=== PATIENT | male | born 1995 | race Caucasian/White ===

== ENCOUNTER 2019-03-20 00:38 | Observation (INO) | payer SELFPAY ==
[2019-03-20] MEDS ORDERED: Sodium Chloride 0.9% 2.5 ML Syringe FLUSH PRN ×2 (01:04→13:31)
[2019-03-20] MEDS ORDERED: Sodium Chloride 0.9% 10 ML Syringe FLUSH PRN ×2 (01:04→13:31)
[2019-03-20] MEDS ORDERED: Ketorolac 30 MG/ML SDV IVPUSH ONE (01:05)
[2019-03-20] MEDS ORDERED: Sodium Chloride 0.9% 1,000 ML IV ONE (01:05)
--- NOTE | 2019-03-20 01:07 | EDM.PDOC ---
ED HPI GENERAL MEDICAL PROBLEM - General Chief Complaint: Upper Extremity Injury/Pain Stated Complaint: PT RT ARM HURTS Time Seen by Provider: 03/20/19 00:55 - History of Present Illness INITIAL COMMENTS - FREE TEXT/NARRATIVE: HISTORY AND PHYSICAL: History of present illness: The patient is a 23-year-old male who says he is up-to-date on his tetanus shot and presents with history of IV drug use and using drugs at his right antecubital fossa about one week ago and noticing some pain and redness to the area which seemed to be getting better and then he closed a door onto the area just recently and the pain seemed to worsen as did the redness. He doesn't complain of any specific elbow pain and says that the pain is mostly in the soft tissue and he is concerned about trauma and infection. He has had no systemic complaints such as fever chills chest pain or shortness of breath no abdominal pain or vomiting and is eating and drinking normally. He doesn't recall any foreign body being retained in his arm. He says that there is pain with movement at the elbow especially with flexion as there is somewhat fullness in the flexure area and with certain movements of his hand his wrist he is having discomfort. He has no numbness or weakness in his hand and sensation is intact. The patient is right-hand dominant Review of systems: As per history of present illness and below otherwise all systems reviewed and negative. Past medical history: As per history of present illness and as reviewed below otherwise noncontributory. Surgical history: As per history of present illness and as reviewed below otherwise noncontributory. Social history: No reported history of drug or alcohol abuse. Family history: As per history of present illness and as reviewed below otherwise noncontributory. Physical exam: General: Well-developed well-nourished man who is vital signs are noted by me and he is talkative and interactive. HEENT: Atraumatic, normocephalic, pupils reactive, negative for conjunctival pallor or scleral icterus, mucous membranes moist, throat clear, neck supple, nontender, trachea midline. Lungs: Clear to auscultation, breath sounds equal bilaterally, chest nontender. Heart: S1S2, regular rhythm and tachycardic rate on my evaluation but no overt murmurs, negative for clicks, rubs, or JVD. Abdomen: Soft, nondistended, nontender. Negative for masses or hepatosplenomegaly. Negative for costovertebral tenderness. Pelvis: Stable nontender. Genitourinary: Deferred. Rectal: Deferred. Extremities: Atraumatic and full range of motion of all extremities with the exception of the right upper extremity. At the antecubital fossa area there is a large ill-defined pinkish erythema noted from the mid forearm extending to the distal one third of the soft tissue humerus which is not circumferential and is localized in the antecubital fossa soft tissue. There is induration and fullness within the antecubital fossa and discrete tenderness here but no drainage. There is no bony tenderness defects or deformities of the radius or ulna nor of the olecranon and the supracondylar areas. There is no axillary lymphadenopathy on the right. Distally pulses are intact and capillary refill is normal and the patient can flex and extend at the hand and the wrist. He does have some discomfort with supination and pronation. The legs are, negative for cords or calf pain. Neurovascular unremarkable. Neuro: Awake, alert, oriented. Cranial nerves II through XII unremarkable. Cerebellum unremarkable. Motor and sensory unremarkable throughout. Exam nonfocal. Diagnostics: X-ray right elbow/soft tissue, CBC CMP lactic acid blood cultures INR UDS CT scan of the right upper extremity Therapeutics: IV fluids Toradol vancomycin 0200: This was discussed with Dr. Tate our orthopedic surgeon and he agrees that a CT scan of this area would be very helpful to decide whether or not he needs to do surgery and drain any abscess or fluid collection. He would like to be on consult and requested the patient be admitted to the hospitalist and he will consult and review the CT scan in the morning. I will discuss this with the hospitalist once I get the CT scan findings. 0342: Testing results were discussed with the patient and the need for admission and surgical involvement with Dr. Tate was discussed. The patient is agreeable. This case was also discussed with our hospitalist Dr. Zhao and she accepts him for admission. Impression: Abscess and cellulitis of right antecubital fossa status post drug use Definitive disposition and diagnosis as appropriate pending reevaluation and review of above. R arm Pain Score (Numeric/FACES): 8 - Related Data Allergies Allergy/AdvReac Type Severity Reaction Status Date / Time No Known Allergies Allergy Verified 03/20/19 00:46 Home Meds: Home Meds . [No Known Home Meds] 03/20/19 [History] Past Medical History - Past Health History Medical/Surgical History: Denies Medical/Surgical History Psychiatric History: Reports: Addiction - Past Surgical History Other HEENT Surgeries/Procedures: unable to verify Other Cardiovascular Surgeries/Procedures: unable to verify Other Respiratory Surgeries/Procedures: unable to verify Other GI Surgeries/Procedures: unable to verify Other Male Surgeries/Procedures: unable to verify Other Endocrine Surgeries/Procedures: unable to verify Other Neurological Surgeries/Procedures: unable to verify Other Musculoskeletal Surgeries/Procedures:: unable to verify Social & Family History - Family History Other Dermatologic Family History: unable to verify - Tobacco Use Smoking Status *Q: Current Every Day Smoker Years of Tobacco use: 8 Packs/Tins Daily: 1 - Recreational Drug Use Recreational Drug Use: Yes Recreational Drug Type: Reports: Heroin Review of Systems - Review of Systems Review Of Systems: Comprehensive ROS is negative, except as noted in HPI. ED EXAM, GENERAL - Physical Exam Exam: See Below (See dictation) Course - Vital Signs Last Recorded V/S: Last Vital Signs Temp 37.2 C 03/20/19 02:58 Pulse 100 03/20/19 02:58 Resp 18 03/20/19 02:58 BP 116/55 L 03/20/19 02:58 Pulse Ox 96 03/20/19 02:58 - Orders/Labs/Meds Orders: Active Orders 24 hr Category Date Time Status Notify Provider Consults [RC] ASDIRECTED Care 03/20/19 02:07 Active Consult to Physician [CONS] Stat Cons 03/20/19 02:06 Active CULTURE BLOOD [BC] Stat Lab 03/20/19 01:20 Received CULTURE BLOOD [BC] Stat Lab 03/20/19 01:30 Received Sodium Chloride 0.9% [Saline Flush] Med 03/20/19 01:04 Active 10 ml FLUSH ASDIRECTED PRN Sodium Chloride 0.9% [Saline Flush] Med 03/20/19 01:04 Active 2.5 ml FLUSH ASDIRECTED PRN Blood Culture x2 Reflex Set [OM.PC] Stat Oth 03/20/19 01:04 Ordered Saline Lock Insert [OM.PC] Stat Oth 03/20/19 01:04 Ordered Saline Lock Insert [OM.PC] Stat Oth 03/20/19 01:05 Ordered Medication Orders Sodium Chloride (Saline Flush) 10 ml FLUSH ASDIRECTED PRN PRN Reason: Keep Vein Open Sodium Chloride (Saline Flush) 2.5 ml FLUSH ASDIRECTED PRN PRN Reason: Keep Vein Open Labs: Laboratory Tests 03/20/19 03/20/19 03/20/19 Range/Units 01:10 01:30 01:30 WBC 17.78 H (4.0-11.0) K/uL RBC 4.78 (4.50-5.90) M/uL Hgb 15.0 (13.0-17.0) g/dL Hct 42.6 (38.0-50.0) % MCV 89.1 (80.0-98.0) fL MCH 31.4 (27.0-32.0) pg MCHC 35.2 (31.0-37.0) g/dL RDW Std Deviation 39.4 (28.0-62.0) fl RDW Coeff of Patricia 12 (11.0-15.0) % Plt Count 306 (150-400) K/uL MPV 9.20 (7.40-12.00) fL Neut % (Auto) 75.2 (48.0-80.0) % Lymph % (Auto) 13.0 L (16.0-40.0) % Pike % (Auto) 9.8 (0.0-15.0) % Eos % (Auto) 1.7 (0.0-7.0) % Baso % (Auto) 0.3 (0.0-1.5) % Neut # (Auto) 13.4 H (1.4-5.7) K/uL Lymph # (Auto) 2.3 (0.6-2.4) K/uL Pike # (Auto) 1.7 H (0.0-0.8) K/uL Eos # (Auto) 0.3 (0.0-0.7) K/uL Baso # (Auto) 0.1 (0.0-0.1) K/uL INR 0.98 Lactate (0.20-2.00) mmol/L Sodium (136-148) mmol/L Potassium (3.5-5.1) mmol/L Chloride (98-107) mmol/L Carbon Dioxide (21.0-32.0) mmol/L BUN (7.0-18.0) mg/dL Creatinine (0.8-1.3) mg/dL Est Cr Clr Drug Dosing Estimated GFR (MDRD) ml/min Glucose (74-106) mg/dL Calcium (8.5-10.1) mg/dL Total Bilirubin (0.2-1.0) mg/dL AST (15-37) IU/L ALT (14-63) IU/L Alkaline Phosphatase (46-116) U/L Total Protein (6.4-8.2) g/dL Albumin (3.4-5.0) g/dL Globulin (2.6-4.0) g/dL Albumin/Globulin Ratio (0.9-1.6) Urine Opiates Screen POSITIVE (NEGATIVE) Ur Oxycodone Screen NEGATIVE (NEGATIVE) Urine Methadone Screen NEGATIVE (NEGATIVE) Ur Barbiturates Screen NEGATIVE (NEGATIVE) Ur Phencyclidine Scrn NEGATIVE (NEGATIVE) Ur Amphetamine Screen POSITIVE (NEGATIVE) U Methamphetamines Scrn NEGATIVE (NEGATIVE) U Benzodiazepines Scrn NEGATIVE (NEGATIVE) U Cocaine Metab Screen NEGATIVE (NEGATIVE) U Marijuana (THC) Screen POSITIVE (NEGATIVE) 03/20/19 03/20/19 Range/Units 01:30 01:30 WBC (4.0-11.0) K/uL RBC (4.50-5.90) M/uL Hgb (13.0-17.0) g/dL Hct (38.0-50.0) % MCV (80.0-98.0) fL MCH (27.0-32.0) pg MCHC (31.0-37.0) g/dL RDW Std Deviation (28.0-62.0) fl RDW Coeff of Patricia (11.0-15.0) % Plt Count (150-400) K/uL MPV (7.40-12.00) fL Neut % (Auto) (48.0-80.0) % Lymph % (Auto) (16.0-40.0) % Pike % (Auto) (0.0-15.0) % Eos % (Auto) (0.0-7.0) % Baso % (Auto) (0.0-1.5) % Neut # (Auto) (1.4-5.7) K/uL Lymph # (Auto) (0.6-2.4) K/uL Pike # (Auto) (0.0-0.8) K/uL Eos # (Auto) (0.0-0.7) K/uL Baso # (Auto) (0.0-0.1) K/uL INR Lactate 0.9 (0.20-2.00) mmol/L Sodium 137 (136-148) mmol/L Potassium 4.0 (3.5-5.1) mmol/L Chloride 100 (98-107) mmol/L Carbon Dioxide 30.9 (21.0-32.0) mmol/L BUN 10 (7.0-18.0) mg/dL Creatinine 1.0 (0.8-1.3) mg/dL Est Cr Clr Drug Dosing TNP Estimated GFR (MDRD) > 60.0 ml/min Glucose 91 (74-106) mg/dL Calcium 8.1 L (8.5-10.1) mg/dL Total Bilirubin 0.6 (0.2-1.0) mg/dL AST 18 (15-37) IU/L ALT 26 (14-63) IU/L Alkaline Phosphatase 82 (46-116) U/L Total Protein 7.1 (6.4-8.2) g/dL Albumin 3.6 (3.4-5.0) g/dL Globulin 3.5 (2.6-4.0) g/dL Albumin/Globulin Ratio 1.0 (0.9-1.6) Urine Opiates Screen (NEGATIVE) Ur Oxycodone Screen (NEGATIVE) Urine Methadone Screen (NEGATIVE) Ur Barbiturates Screen (NEGATIVE) Ur Phencyclidine Scrn (NEGATIVE) Ur Amphetamine Screen (NEGATIVE) U Methamphetamines Scrn (NEGATIVE) U Benzodiazepines Scrn (NEGATIVE) U Cocaine Metab Screen (NEGATIVE) U Marijuana (THC) Screen (NEGATIVE) Meds: Medications Generic Name Dose Route Start Last Admin Trade Name Freq PRN Reason Stop Dose Admin Sodium Chloride 10 ml 03/20/19 01:04 Saline Flush FLUSH ASDIRECTED PRN Keep Vein Open Sodium Chloride 2.5 ml 03/20/19 01:04 Saline Flush FLUSH ASDIRECTED PRN Keep Vein Open Discontinued Medications Generic Name Dose Route Start Last Admin Trade Name Freq PRN Reason Stop Dose Admin Sodium Chloride 1,000 mls @ 999 mls/hr 03/20/19 01:05 03/20/19 01:35 Normal Saline IV 03/20/19 02:05 999 mls/hr STAT ONE Administration Vancomycin HCl 1 gm/ Sodium 250 mls @ 166 mls/hr 03/20/19 01:05 03/20/19 01: 35 Chloride IV 03/20/19 02:35 166 mls/hr ONETIME ONE Administration Iopamidol 100 ml 03/20/19 02:21 03/20/19 02:33 Isovue-370 (76%) IVPUSH 03/20/19 02:22 100 ml ONETIME ONE Administration Ketorolac Tromethamine 30 mg 03/20/19 01:05 03/20/19 01:35 Toradol IVPUSH 03/20/19 01:06 30 mg ONETIME ONE Administration Departure - Departure Time of Disposition: 03:45 Disposition: Refer to Observation Condition: Good Clinical Impression: Arm abscess - Discharge Information Referrals: PCP,None [Primary Care Provider] - Forms: ED Department Discharge Sepsis Event Note - Evaluation Sepsis Screening Result: No Definite Risk - Focused Exam Vital Signs: Vital Signs Temp Pulse Resp BP Pulse Ox 03/20/19 02:58 37.2 C 100 18 116/55 L 96 03/20/19 00:41 37.1 C 124 H 18 132/72 100 Date Exam was Performed: 03/20/19 Time Exam was Performed: 03:44 - My Orders Last 24 Hours: My Active Orders 03/20/19 01:04 Sodium Chloride 0.9% [Saline Flush] 10 ml FLUSH ASDIRECTED PRN Sodium Chloride 0.9% [Saline Flush] 2.5 ml FLUSH ASDIRECTED PRN Blood Culture x2 Reflex Set [OM.PC] Stat Saline Lock Insert [OM.PC] Stat 03/20/19 01:05 Saline Lock Insert [OM.PC] Stat 03/20/19 01:20 CULTURE BLOOD [BC] Stat 03/20/19 01:30 CULTURE BLOOD [BC] Stat 03/20/19 02:06 Consult to Physician [CONS] Stat 03/20/19 02:07 Notify Provider Consults [RC] ASDIRECTED - Assessment/Plan Last 24 Hours: My Active Orders 03/20/19 01:04 Sodium Chloride 0.9% [Saline Flush] 10 ml FLUSH ASDIRECTED PRN Sodium Chloride 0.9% [Saline Flush] 2.5 ml FLUSH ASDIRECTED PRN Blood Culture x2 Reflex Set [OM.PC] Stat Saline Lock Insert [OM.PC] Stat 03/20/19 01:05 Saline Lock Insert [OM.PC] Stat 03/20/19 01:20 CULTURE BLOOD [BC] Stat 03/20/19 01:30 CULTURE BLOOD [BC] Stat 03/20/19 02:06 Consult to Physician [CONS] Stat 03/20/19 02:07 Notify Provider Consults [RC] ASDIRECTED
--- NOTE | 2019-03-20 01:58 | CR ---
Indication: Trauma, rule out foreign body Technique: Three views of the left elbow Comparison: None Findings/Impression: 1. There is no fracture or dislocation. There is no appreciable elbow joint effusion. 2. Subcutaneous edema is noted along the medial elbow. There is no radiopaque foreign body or subcutaneous emphysema. Dictated by Bronson Tello MD @ Mar 20 2019 1:57AM Signed by Dr. Bronson Tello @ Mar 20 2019 1:57AM
[2019-03-20 02:04] LABS: BLOOD UREA NITROGEN,BUN 10 mg/dL (7.0-18.0); CARBON DIOXIDE,CO2 30.9 mmol/L (21.0-32.0); CHLORIDE,CL 100 mmol/L (98-107); GLUCOSE RANDOM 91 mg/dL (74-106); SODIUM,NA 137 mmol/L (136-148)
[2019-03-20] MEDS ORDERED: Iopamidol 755 Mg/ML 100 ML Bottle IVPUSH ONE (02:21)
--- NOTE | 2019-03-20 03:39 | CT ---
Exam: CT angiography of the right upper extremity with IV contrast. Clinical Information: Right upper extremity swelling. Comparison: None. Findings: Lobular peripherally enhancing low density fluid collection in the subcutaneous tissues of the right antecubital fossa measuring approximately 3.0 x 1.9 x 1.9 cm compatible with an abscess. Adjacent moderate skin thickening and subcutaneous edema which extends in the lateral distal arm and anterior proximal mid forearm consistent with cellulitis. The visualized right brachial, radial, ulnar, and intraosseous arteries are widely patent. The visualized right humerus, radius, and ulna are unremarkable. Impression: Abscess in the right antecubital fossa measuring 3.0 x 1.9 x 1.9 cm with adjacent cellulitis. Please note that all CT scans at this facility use dose modulation, iterative reconstruction, and/or weight-based dosing when appropriate to reduce radiation dose to as low as reasonably achievable. Dictated by Yousuf Rhodes MD @ Mar 20 2019 9:05AM (Electronically Signed)
[2019-03-20] MEDS: Sodium Chloride 0.9% 1,000 ML IV SCH ×2 (03:51→14:28)
[2019-03-20] MEDS: traMADol 50 MG Tab PO PRN (07:38)
--- NOTE | 2019-03-20 09:44 | PCM.HP.2 ---
<Reyna Mendes - Last Filed: 03/20/19 12:33> H&P History of Present Illness - General Date of Service: 03/20/19 Admit Problem/Dx: Admission Diagnosis/Problem Admission Diagnosis/Problem Abscess of upper extremity Source of Information: Patient History Limitations: Reports: No Limitations - History of Present Illness Initial Comments - Free Text/Narative: Patient is a 23-year-old male with a significant past medical history of IV drug abuse including heroin/methamphetamine use; presenting today with right upper extremity swelling with redness. Patient does not endorse any recent IV drug abuse however does complain that he had bumped his arm; specifically his elbow into a door causing the redness and swelling. Patient denies any fevers, chills, body aches but does endorse having increasing pain trying to stretch his arm out. Patient otherwise has no other concerns or comments at this time. ER course: CTA of right upper extremity showed multiloculated abscesses with cellulitis of right antecubital fossa. Right elbow x-ray; no acute fracture and/or dislocation however soft tissue swelling noted over the medial aspect of right elbow Bedside: Patient is only complaining of pain when extending her arm or with moving the arm however does not have any other issues at this time. R arm Pain Score (Numeric/FACES): 7 - Related Data Allergies/Adverse Reactions: Allergies Allergy/AdvReac Type Severity Reaction Status Date / Time No Known Allergies Allergy Verified 03/20/19 10:56 Home Medications: Home Meds Acetaminophen [Tylenol Extra Strength] 1,000 mg PO Q6H PRN tablet 03/22/19 [Rx] Cephalexin [Keflex] 500 mg PO TID 10 Days capsule 03/22/19 [Rx] Past Medical History - Past Health History Medical/Surgical History: Denies Medical/Surgical History Psychiatric History: Reports: Addiction - Past Surgical History Other HEENT Surgeries/Procedures: unable to verify Other Cardiovascular Surgeries/Procedures: unable to verify Other Respiratory Surgeries/Procedures: unable to verify Other GI Surgeries/Procedures: unable to verify Other Male Surgeries/Procedures: unable to verify Other Endocrine Surgeries/Procedures: unable to verify Other Neurological Surgeries/Procedures: unable to verify Other Musculoskeletal Surgeries/Procedures:: unable to verify Social & Family History - Family History Other Dermatologic Family History: unable to verify - Tobacco Use Smoking Status *Q: Current Every Day Smoker Years of Tobacco use: 6 Packs/Tins Daily: 1 Second Hand Smoke Exposure: No - Caffeine Use Caffeine Use: Reports: Soda - Recreational Drug Use Recreational Drug Use: Yes Drug Use in Last 12 Months: Yes Recreational Drug Type: Reports: Heroin Recreational Drug Last Use: pt stated 5 days ago H&P Review of Systems - Review of Systems: Review Of Systems: See Below General: Denies: Fever, Chills, Malaise HEENT: Denies: Eye Pain Pulmonary: Denies: Shortness of Breath, Wheezing, Pleuritic Chest Pain Cardiovascular: Denies: Chest Pain, Palpitations Gastrointestinal: Denies: Abdominal Pain, Constipation, Diarrhea Musculoskeletal: Reports: Arm Pain. Denies: Shoulder Pain, Back Pain Skin: Reports: Erythema Neurological: Denies: Headache Exam - Exam Exam: See Below - Vital Signs Vital Signs: Last Vital Signs Temp 98.4 F 03/20/19 07:43 Pulse 84 03/20/19 07:43 Resp 15 03/20/19 07:43 BP 128/67 03/20/19 07:43 Pulse Ox 95 03/20/19 07:43 Weight: 75.024 kg - Exam General: Alert, Oriented HEENT: Conjunctiva Clear, EOMI Neck: Supple, Trachea Midline Lungs: Clear to Auscultation, Normal Respiratory Effort Cardiovascular: Regular Rate, Regular Rhythm GI/Abdominal Exam: Soft, Non-Tender Back Exam: Normal Inspection Extremities: Other (decreased active ROM secondary to pain ; normal Passive ROM ) Skin: Other (right antecubital fossa: erytheam w/ induration extending to just above elbow joint line to proximal 1/3 of forearm. redness has improved and has not gone past line of demarcation ..sensation and negative turner strength intact ) Psychiatric: Alert, Normal Affect, Normal Mood - Patient Data Lab Results Last 24 hrs: Laboratory Results - last 24 hr 03/20/19 03/20/19 03/20/19 Range/Units 01:10 01:30 01:30 WBC 17.78 H (4.0-11.0) K/uL RBC 4.78 (4.50-5.90) M/uL Hgb 15.0 (13.0-17.0) g/dL Hct 42.6 (38.0-50.0) % MCV 89.1 (80.0-98.0) fL MCH 31.4 (27.0-32.0) pg MCHC 35.2 (31.0-37.0) g/dL RDW Std Deviation 39.4 (28.0-62.0) fl RDW Coeff of Patricia 12 (11.0-15.0) % Plt Count 306 (150-400) K/uL MPV 9.20 (7.40-12.00) fL Neut % (Auto) 75.2 (48.0-80.0) % Lymph % (Auto) 13.0 L (16.0-40.0) % Valley % (Auto) 9.8 (0.0-15.0) % Eos % (Auto) 1.7 (0.0-7.0) % Baso % (Auto) 0.3 (0.0-1.5) % Neut # (Auto) 13.4 H (1.4-5.7) K/uL Lymph # (Auto) 2.3 (0.6-2.4) K/uL Valley # (Auto) 1.7 H (0.0-0.8) K/uL Eos # (Auto) 0.3 (0.0-0.7) K/uL Baso # (Auto) 0.1 (0.0-0.1) K/uL INR 0.98 Lactate (0.20-2.00) mmol/L Sodium (136-148) mmol/L Potassium (3.5-5.1) mmol/L Chloride (98-107) mmol/L Carbon Dioxide (21.0-32.0) mmol/L BUN (7.0-18.0) mg/dL Creatinine (0.8-1.3) mg/dL Est Cr Clr Drug Dosing Estimated GFR (MDRD) ml/min Glucose (74-106) mg/dL Calcium (8.5-10.1) mg/dL Total Bilirubin (0.2-1.0) mg/dL AST (15-37) IU/L ALT (14-63) IU/L Alkaline Phosphatase (46-116) U/L Total Protein (6.4-8.2) g/dL Albumin (3.4-5.0) g/dL Globulin (2.6-4.0) g/dL Albumin/Globulin Ratio (0.9-1.6) Urine Opiates Screen POSITIVE (NEGATIVE) Ur Oxycodone Screen NEGATIVE (NEGATIVE) Urine Methadone Screen NEGATIVE (NEGATIVE) Ur Barbiturates Screen NEGATIVE (NEGATIVE) Ur Phencyclidine Scrn NEGATIVE (NEGATIVE) Ur Amphetamine Screen POSITIVE (NEGATIVE) U Methamphetamines Scrn NEGATIVE (NEGATIVE) U Benzodiazepines Scrn NEGATIVE (NEGATIVE) U Cocaine Metab Screen NEGATIVE (NEGATIVE) U Marijuana (THC) Screen POSITIVE (NEGATIVE) 03/20/19 03/20/19 Range/Units 01:30 01:30 WBC (4.0-11.0) K/uL RBC (4.50-5.90) M/uL Hgb (13.0-17.0) g/dL Hct (38.0-50.0) % MCV (80.0-98.0) fL MCH (27.0-32.0) pg MCHC (31.0-37.0) g/dL RDW Std Deviation (28.0-62.0) fl RDW Coeff of Patricia (11.0-15.0) % Plt Count (150-400) K/uL MPV (7.40-12.00) fL Neut % (Auto) (48.0-80.0) % Lymph % (Auto) (16.0-40.0) % Valley % (Auto) (0.0-15.0) % Eos % (Auto) (0.0-7.0) % Baso % (Auto) (0.0-1.5) % Neut # (Auto) (1.4-5.7) K/uL Lymph # (Auto) (0.6-2.4) K/uL Valley # (Auto) (0.0-0.8) K/uL Eos # (Auto) (0.0-0.7) K/uL Baso # (Auto) (0.0-0.1) K/uL INR Lactate 0.9 (0.20-2.00) mmol/L Sodium 137 (136-148) mmol/L Potassium 4.0 (3.5-5.1) mmol/L Chloride 100 (98-107) mmol/L Carbon Dioxide 30.9 (21.0-32.0) mmol/L BUN 10 (7.0-18.0) mg/dL Creatinine 1.0 (0.8-1.3) mg/dL Est Cr Clr Drug Dosing TNP Estimated GFR (MDRD) > 60.0 ml/min Glucose 91 (74-106) mg/dL Calcium 8.1 L (8.5-10.1) mg/dL Total Bilirubin 0.6 (0.2-1.0) mg/dL AST 18 (15-37) IU/L ALT 26 (14-63) IU/L Alkaline Phosphatase 82 (46-116) U/L Total Protein 7.1 (6.4-8.2) g/dL Albumin 3.6 (3.4-5.0) g/dL Globulin 3.5 (2.6-4.0) g/dL Albumin/Globulin Ratio 1.0 (0.9-1.6) Urine Opiates Screen (NEGATIVE) Ur Oxycodone Screen (NEGATIVE) Urine Methadone Screen (NEGATIVE) Ur Barbiturates Screen (NEGATIVE) Ur Phencyclidine Scrn (NEGATIVE) Ur Amphetamine Screen (NEGATIVE) U Methamphetamines Scrn (NEGATIVE) U Benzodiazepines Scrn (NEGATIVE) U Cocaine Metab Screen (NEGATIVE) U Marijuana (THC) Screen (NEGATIVE) Result Diagrams: 03/20/19 01:30 03/20/19 01:30 Sepsis Event Note - Evaluation Sepsis Screening Result: No Definite Risk - Focused Exam Vital Signs: Vital Signs Temp Pulse Resp BP Pulse Ox 03/20/19 07:43 98.4 F 84 15 128/67 95 03/20/19 04:40 97.2 F 85 16 122/58 L 97 03/20/19 04:00 99 F 88 18 106/52 L 96 03/20/19 02:58 99 F 100 18 116/55 L 96 03/20/19 00:41 98.7 F 124 H 18 132/72 100 Date Exam was Performed: 03/20/19 Time Exam was Performed: 12:33 Problem List Initiated/Reviewed/Updated: Yes Orders Last 24hrs: Active Orders 24 hr Category Date Time Status Patient Status [ADT] Stat ADT 03/20/19 03:45 Active Notify Provider Consults [RC] ASDIRECTED Care 03/20/19 02:07 Active Vital Signs [RC] Q4H Care 03/20/19 08:00 Active Consult to Physician [CONS] Stat Cons 03/20/19 02:06 Active NPO [Nothing Per Oral Diet] [DIET] Diet 03/20/19 Breakfast Active CULTURE BLOOD [BC] Stat Lab 03/20/19 01:20 Received CULTURE BLOOD [BC] Stat Lab 03/20/19 01:30 Received VANCOMYCIN TROUGH [CHEM] Timed Lab 03/21/19 08:00 Ordered Pharmacy to Dose - Vancomycin Med 03/20/19 06:30 Pending 1 dose .XX ASDIRECTED Sodium Chloride 0.9% [Normal Saline] 1,000 ml Med 03/20/19 04:00 Active IV ASDIRECTED Sodium Chloride 0.9% [Saline Flush] Med 03/20/19 01:04 Active 10 ml FLUSH ASDIRECTED PRN Sodium Chloride 0.9% [Saline Flush] Med 03/20/19 01:04 Active 2.5 ml FLUSH ASDIRECTED PRN Vancomycin [Vancocin] 1 gm Med 03/20/19 09:00 Active Sodium Chloride 0.9% [Normal Saline (AdvBag)] 250 ml IV Q8H traMADol [Ultram] Med 03/20/19 06:16 Active 25 mg PO Q6H PRN Blood Culture x2 Reflex Set [OM.PC] Stat Oth 03/20/19 01:04 Ordered Saline Lock Insert [OM.PC] Stat Oth 03/20/19 01:04 Ordered Saline Lock Insert [OM.PC] Stat Oth 03/20/19 01:05 Ordered Code Status [Resuscitation Status] Routine Resus Stat 03/20/19 09:38 Ordered Medication Orders Sodium Chloride (Normal Saline) 1,000 mls @ 125 mls/hr IV ASDIRECTED [facility] Last Admin: 03/20/19 03:51 Dose: 125 mls/hr Vancomycin HCl 1 gm/ Sodium (Chloride) 250 mls @ 166 mls/hr IV Q8H [facility]ACHEL Last Admin: 03/20/19 08:57 Dose: 166 mls/hr Sodium Chloride (Saline Flush) 10 ml FLUSH ASDIRECTED PRN PRN Reason: Keep Vein Open Sodium Chloride (Saline Flush) 2.5 ml FLUSH ASDIRECTED PRN PRN Reason: Keep Vein Open Tramadol HCl (Ultram) 25 mg PO Q6H PRN PRN Reason: Pain Last Admin: 03/20/19 07:38 Dose: 25 mg Vancomycin HCl (Pharmacy To Dose - Vancomycin) 1 dose .XX ASDIRECTED [facility] Assessment/Plan Comment:: Assessment 1. Cellulitis with abscess formation of right antecubital fossa secondary to trauma and history of IV drug abuse 2. Leukocytosis secondary to above 3. Hx IV drug abuse Plan: 1. Admit to observation. N.p.o. after midnight/regular diet thereafter. Full code. Activity up ad brii. DVT prophylaxis: SCDs. 2. Cellulitis; continue vancomycin until blood cultures/sensitivities return. Patient has been afebrile since admission. 3. Consultation: Dr. Zafar Tate of orthopedics has been officially consulted : We appreciate his help in this case 4. Patient denies any history of hepatitis and/or HIV; will consider testing secondary to history of IV drug abuse. 5. Continue to monitor patient; will order labs in a.m. Patient understood plan. All questions answered. <Daina Zhao - Last Filed: 03/25/19 14:28> H&P History of Present Illness - General Admit Problem/Dx: Admission Diagnosis/Problem Admission Diagnosis/Problem Abscess of right forearm Admission Diagnosis/Problem Abscess of upper extremity Exam - Vital Signs Vital Signs: Last Vital Signs Temp 36.4 C 03/22/19 07:41 Pulse 82 03/22/19 07:41 Resp 14 03/22/19 07:41 BP 130/71 03/22/19 07:41 Pulse Ox 96 03/22/19 07:41 - Patient Data Result Diagrams: 03/22/19 05:37 03/22/19 05:37 David Results Last 24 hrs: Microbiology 03/20/19 13:08 Wound Culture - Final Arm, Right - Lower Escherichia Coli Skin Wendy 03/20/19 01:20 Aerobic Blood Culture - Final Blood - Venous - Lab Draw NO GROWTH AFTER 5 DAYS Anaerobic Blood Culture - Final NO GROWTH AFTER 5 DAYS 03/20/19 01:30 Aerobic Blood Culture - Final Blood - Venous NO GROWTH AFTER 5 DAYS Anaerobic Blood Culture - Final NO GROWTH AFTER 5 DAYS 03/20/19 13:08 Anaerobic Culture - Preliminary Other - Arm, Right Assessment/Plan Comment:: I performed a history and physical exam of the patient and discussed management with resident. I have reviewed the residents note and agree with documented findings and plan unless otherwise specified in my note.
--- NOTE | 2019-03-20 10:13 | PCM.CONS ---
H&P History of Present Illness - General Date of Service: 03/20/19 Admit Problem/Dx: Admission Diagnosis/Problem Admission Diagnosis/Problem Abscess of upper extremity Source of Information: Patient, Provider History Limitations: Reports: No Limitations - History of Present Illness Initial Comments - Free Text/Narative: Patient is a 23 year old right hand dominant male who presented to the ER last night. He had gradual onset of pain. He is a known IV drug user. He does not report any recent injections in the right upper extremity or antecubital fossa. He does report trauma, striking the elbow on a door. CT scan notes a loculated superficial abscess in the antecubital region. No joint or bone involvement. No hand numbness. He was started on Vancomycin in the ER. He was admitted to the hospitalist service for medical management of possible withdrawal. R arm Pain Score (Numeric/FACES): 7 - Related Data Allergies/Adverse Reactions: Allergies Allergy/AdvReac Type Severity Reaction Status Date / Time No Known Allergies Allergy Verified 03/20/19 00:46 Home Medications: Home Meds . [No Known Home Meds] 03/20/19 [History] Past Medical History - Past Health History Medical/Surgical History: Denies Medical/Surgical History Psychiatric History: Reports: Addiction - Past Surgical History Other HEENT Surgeries/Procedures: unable to verify Other Cardiovascular Surgeries/Procedures: unable to verify Other Respiratory Surgeries/Procedures: unable to verify Other GI Surgeries/Procedures: unable to verify Other Male Surgeries/Procedures: unable to verify Other Endocrine Surgeries/Procedures: unable to verify Other Neurological Surgeries/Procedures: unable to verify Other Musculoskeletal Surgeries/Procedures:: unable to verify Social & Family History - Family History Other Dermatologic Family History: unable to verify - Tobacco Use Smoking Status *Q: Current Every Day Smoker Years of Tobacco use: 6 Packs/Tins Daily: 1 Second Hand Smoke Exposure: No - Caffeine Use Caffeine Use: Reports: Soda - Recreational Drug Use Recreational Drug Use: Yes Drug Use in Last 12 Months: Yes Recreational Drug Type: Reports: Heroin Recreational Drug Last Use: pt stated 5 days ago H&P Review of Systems - Review of Systems: Review Of Systems: See Below General: Reports: Chills HEENT: Reports: No Symptoms Pulmonary: Reports: No Symptoms Cardiovascular: Reports: No Symptoms Gastrointestinal: Reports: No Symptoms Genitourinary: Reports: No Symptoms Musculoskeletal: Reports: Arm Pain Skin: Reports: Erythema Psychiatric: Reports: No Symptoms Neurological: Reports: No Symptoms Hematologic/Lymphatic: Reports: No Symptoms Exam - Exam Exam: See Below - Vital Signs Vital Signs: Last Vital Signs Temp 98.4 F 03/20/19 07:43 Pulse 84 03/20/19 07:43 Resp 15 03/20/19 07:43 BP 128/67 03/20/19 07:43 Pulse Ox 95 03/20/19 07:43 Weight: 165 lb 6.4 oz - Exam General: Alert, Oriented, Cooperative Neck: Supple, Trachea Midline Lungs: Clear to Auscultation Cardiovascular: Regular Rate, Regular Rhythm GI/Abdominal Exam: Normal Bowel Sounds Extremities: Other Peripheral Pulses: 2+: Radial (R) Physical Exam Comments:: Erythema antecubital region, smaller than outlined area Antecubital swelling consistent with abscess Moves fingers Normal sensation to light touch Elbow ROM , palpation, and stability deferred due to known abscess - Patient Data Lab Results Last 24 hrs: Laboratory Results - last 24 hr 03/20/19 03/20/19 03/20/19 Range/Units 01:10 01:30 01:30 WBC 17.78 H (4.0-11.0) K/uL RBC 4.78 (4.50-5.90) M/uL Hgb 15.0 (13.0-17.0) g/dL Hct 42.6 (38.0-50.0) % MCV 89.1 (80.0-98.0) fL MCH 31.4 (27.0-32.0) pg MCHC 35.2 (31.0-37.0) g/dL RDW Std Deviation 39.4 (28.0-62.0) fl RDW Coeff of Patricia 12 (11.0-15.0) % Plt Count 306 (150-400) K/uL MPV 9.20 (7.40-12.00) fL Neut % (Auto) 75.2 (48.0-80.0) % Lymph % (Auto) 13.0 L (16.0-40.0) % Todd % (Auto) 9.8 (0.0-15.0) % Eos % (Auto) 1.7 (0.0-7.0) % Baso % (Auto) 0.3 (0.0-1.5) % Neut # (Auto) 13.4 H (1.4-5.7) K/uL Lymph # (Auto) 2.3 (0.6-2.4) K/uL Todd # (Auto) 1.7 H (0.0-0.8) K/uL Eos # (Auto) 0.3 (0.0-0.7) K/uL Baso # (Auto) 0.1 (0.0-0.1) K/uL INR 0.98 Lactate (0.20-2.00) mmol/L Sodium (136-148) mmol/L Potassium (3.5-5.1) mmol/L Chloride (98-107) mmol/L Carbon Dioxide (21.0-32.0) mmol/L BUN (7.0-18.0) mg/dL Creatinine (0.8-1.3) mg/dL Est Cr Clr Drug Dosing Estimated GFR (MDRD) ml/min Glucose (74-106) mg/dL Calcium (8.5-10.1) mg/dL Total Bilirubin (0.2-1.0) mg/dL AST (15-37) IU/L ALT (14-63) IU/L Alkaline Phosphatase (46-116) U/L Total Protein (6.4-8.2) g/dL Albumin (3.4-5.0) g/dL Globulin (2.6-4.0) g/dL Albumin/Globulin Ratio (0.9-1.6) Urine Opiates Screen POSITIVE (NEGATIVE) Ur Oxycodone Screen NEGATIVE (NEGATIVE) Urine Methadone Screen NEGATIVE (NEGATIVE) Ur Barbiturates Screen NEGATIVE (NEGATIVE) Ur Phencyclidine Scrn NEGATIVE (NEGATIVE) Ur Amphetamine Screen POSITIVE (NEGATIVE) U Methamphetamines Scrn NEGATIVE (NEGATIVE) U Benzodiazepines Scrn NEGATIVE (NEGATIVE) U Cocaine Metab Screen NEGATIVE (NEGATIVE) U Marijuana (THC) Screen POSITIVE (NEGATIVE) 03/20/19 03/20/19 Range/Units 01:30 01:30 WBC (4.0-11.0) K/uL RBC (4.50-5.90) M/uL Hgb (13.0-17.0) g/dL Hct (38.0-50.0) % MCV (80.0-98.0) fL MCH (27.0-32.0) pg MCHC (31.0-37.0) g/dL RDW Std Deviation (28.0-62.0) fl RDW Coeff of Patricia (11.0-15.0) % Plt Count (150-400) K/uL MPV (7.40-12.00) fL Neut % (Auto) (48.0-80.0) % Lymph % (Auto) (16.0-40.0) % Todd % (Auto) (0.0-15.0) % Eos % (Auto) (0.0-7.0) % Baso % (Auto) (0.0-1.5) % Neut # (Auto) (1.4-5.7) K/uL Lymph # (Auto) (0.6-2.4) K/uL Todd # (Auto) (0.0-0.8) K/uL Eos # (Auto) (0.0-0.7) K/uL Baso # (Auto) (0.0-0.1) K/uL INR Lactate 0.9 (0.20-2.00) mmol/L Sodium 137 (136-148) mmol/L Potassium 4.0 (3.5-5.1) mmol/L Chloride 100 (98-107) mmol/L Carbon Dioxide 30.9 (21.0-32.0) mmol/L BUN 10 (7.0-18.0) mg/dL Creatinine 1.0 (0.8-1.3) mg/dL Est Cr Clr Drug Dosing TNP Estimated GFR (MDRD) > 60.0 ml/min Glucose 91 (74-106) mg/dL Calcium 8.1 L (8.5-10.1) mg/dL Total Bilirubin 0.6 (0.2-1.0) mg/dL AST 18 (15-37) IU/L ALT 26 (14-63) IU/L Alkaline Phosphatase 82 (46-116) U/L Total Protein 7.1 (6.4-8.2) g/dL Albumin 3.6 (3.4-5.0) g/dL Globulin 3.5 (2.6-4.0) g/dL Albumin/Globulin Ratio 1.0 (0.9-1.6) Urine Opiates Screen (NEGATIVE) Ur Oxycodone Screen (NEGATIVE) Urine Methadone Screen (NEGATIVE) Ur Barbiturates Screen (NEGATIVE) Ur Phencyclidine Scrn (NEGATIVE) Ur Amphetamine Screen (NEGATIVE) U Methamphetamines Scrn (NEGATIVE) U Benzodiazepines Scrn (NEGATIVE) U Cocaine Metab Screen (NEGATIVE) U Marijuana (THC) Screen (NEGATIVE) Result Diagrams: 03/20/19 01:30 03/20/19 01:30 Sepsis Event Note - Evaluation Sepsis Screening Result: No Definite Risk - Focused Exam Vital Signs: Vital Signs Temp Pulse Resp BP Pulse Ox 03/20/19 07:43 98.4 F 84 15 128/67 95 03/20/19 04:40 97.2 F 85 16 122/58 L 97 03/20/19 04:00 99 F 88 18 106/52 L 96 03/20/19 02:58 99 F 100 18 116/55 L 96 03/20/19 00:41 98.7 F 124 H 18 132/72 100 Date Exam was Performed: 03/20/19 Time Exam was Performed: 10:07 Consult PN Assessment/Plan Procedures: Procedures ASSAY OF LACTIC ACID (01/13/18) COMPLETE CBC W/AUTO DIFF WBC (01/13/18) COMPREHEN METABOLIC PANEL (01/13/18) ELECTROCARDIOGRAM TRACING (01/13/18) EMERGENCY DEPT VISIT (01/13/18) GLUCOSE BLOOD TEST (01/13/18) HYDRATE IV INFUSION ADD-ON (01/13/18) PROTHROMBIN TIME (01/13/18) ROUTINE VENIPUNCTURE (01/13/18) THER/PROPH/DIAG INJ IV PUSH (01/13/18) THROMBOPLASTIN TIME PARTIAL (01/13/18) Problem List Initiated/Reviewed/Updated: Yes Plan: NPO Plan I&D today. Requesting Provider: Lyric Perez Date Consult Requested: 03/20/19 Reason for Consult: Right elbow abscess Patient History Reviewed: Yes Admission H&P Reviewed: Yes
--- NOTE | 2019-03-20 10:54 | PCM.PREANE ---
Preanesthetic Assessment - Anesthesia/Transfusion/Family Hx Anesthesia History: No Prior Anesthesia Family History of Anesthesia Reaction: No Transfusion History: No Prior Transfusion(s) - Review of Systems General: No Symptoms Pulmonary: No Symptoms Cardiovascular: No Symptoms Neurological: No Symptoms Other: Reports: None - Physical Assessment NPO Status Date: 03/19/19 NPO Status Time: 23:30 Vital Signs: Last Vital Signs Temp 98.4 F 03/20/19 07:43 Pulse 84 03/20/19 07:43 Resp 15 03/20/19 07:43 BP 128/67 03/20/19 07:43 Pulse Ox 95 03/20/19 07:43 Height: 5 ft 4 in Weight: 75.024 kg ASA Class: 3E Mental Status: Alert & Oriented x3 Airway Class: Mallampati = 2 Dentition: Reports: Normal Dentition Thyro-Mental Finger Breadths: 3 Mouth Opening Finger Breadths: 3 ROM/Head Extension: Full Lungs: Clear to Auscultation, Normal Respiratory Effort Cardiovascular: Regular Rate, Regular Rhythm - Lab Values: Laboratory Last Values WBC 17.78 K/uL (4.0-11.0) H 03/20/19 01:30 RBC 4.78 M/uL (4.50-5.90) 03/20/19 01:30 Hgb 15.0 g/dL (13.0-17.0) 03/20/19 01:30 Hct 42.6 % (38.0-50.0) 03/20/19 01:30 MCV 89.1 fL (80.0-98.0) 03/20/19 01:30 MCH 31.4 pg (27.0-32.0) 03/20/19 01:30 MCHC 35.2 g/dL (31.0-37.0) 03/20/19 01:30 RDW Std Deviation 39.4 fl (28.0-62.0) 03/20/19 01:30 RDW Coeff of Patricia 12 % (11.0-15.0) 03/20/19 01:30 Plt Count 306 K/uL (150-400) 03/20/19 01:30 MPV 9.20 fL (7.40-12.00) 03/20/19 01:30 Neut % (Auto) 75.2 % (48.0-80.0) 03/20/19 01:30 Lymph % (Auto) 13.0 % (16.0-40.0) L 03/20/19 01:30 [place] % (Auto) 9.8 % (0.0-15.0) 03/20/19 01:30 Eos % (Auto) 1.7 % (0.0-7.0) 03/20/19 01:30 Baso % (Auto) 0.3 % (0.0-1.5) 03/20/19 01:30 Neut # (Auto) 13.4 K/uL (1.4-5.7) H 03/20/19 01:30 Lymph # (Auto) 2.3 K/uL (0.6-2.4) 03/20/19 01:30 [place] # (Auto) 1.7 K/uL (0.0-0.8) H 03/20/19 01:30 Eos # (Auto) 0.3 K/uL (0.0-0.7) 03/20/19 01:30 Baso # (Auto) 0.1 K/uL (0.0-0.1) 03/20/19 01:30 INR 0.98 03/20/19 01:30 Lactate 0.9 mmol/L (0.20-2.00) 03/20/19 01:30 Sodium 137 mmol/L (136-148) 03/20/19 01:30 Potassium 4.0 mmol/L (3.5-5.1) 03/20/19 01:30 Chloride 100 mmol/L (98-107) 03/20/19 01:30 Carbon Dioxide 30.9 mmol/L (21.0-32.0) 03/20/19 01:30 BUN 10 mg/dL (7.0-18.0) 03/20/19 01:30 Creatinine 1.0 mg/dL (0.8-1.3) 03/20/19 01:30 Est Cr Clr Drug Dosing TNP 03/20/19 01:30 Estimated GFR (MDRD) > 60.0 ml/min 03/20/19 01:30 Glucose 91 mg/dL (74-106) 03/20/19 01:30 Calcium 8.1 mg/dL (8.5-10.1) L 03/20/19 01:30 Total Bilirubin 0.6 mg/dL (0.2-1.0) 03/20/19 01:30 AST 18 IU/L (15-37) 03/20/19 01:30 ALT 26 IU/L (14-63) 03/20/19 01:30 Alkaline Phosphatase 82 U/L (46-116) 03/20/19 01:30 Total Protein 7.1 g/dL (6.4-8.2) 03/20/19 01:30 Albumin 3.6 g/dL (3.4-5.0) 03/20/19 01:30 Globulin 3.5 g/dL (2.6-4.0) 03/20/19 01:30 Albumin/Globulin Ratio 1.0 (0.9-1.6) 03/20/19 01:30 Urine Opiates Screen POSITIVE (NEGATIVE) 03/20/19 01:10 Ur Oxycodone Screen NEGATIVE (NEGATIVE) 03/20/19 01:10 Urine Methadone Screen NEGATIVE (NEGATIVE) 03/20/19 01:10 Ur Barbiturates Screen NEGATIVE (NEGATIVE) 03/20/19 01:10 Ur Phencyclidine Scrn NEGATIVE (NEGATIVE) 03/20/19 01:10 Ur Amphetamine Screen POSITIVE (NEGATIVE) 03/20/19 01:10 U Methamphetamines Scrn NEGATIVE (NEGATIVE) 03/20/19 01:10 U Benzodiazepines Scrn NEGATIVE (NEGATIVE) 03/20/19 01:10 U Cocaine Metab Screen NEGATIVE (NEGATIVE) 03/20/19 01:10 U Marijuana (THC) Screen POSITIVE (NEGATIVE) 03/20/19 01:10 - Allergies Allergies/Adverse Reactions: Allergies Allergy/AdvReac Type Severity Reaction Status Date / Time No Known Allergies Allergy Verified 03/20/19 00:46 - Anesthesia Plan Free Text/Narrative:: Pt states he is a long time IV drug user "heroin" and occasionally smokes it as well. He states he has been using heroin IV daily for at least the last 30 days. He also admits to periodic marijuana use as well. - Acknowledgements Anesthesia Type Planned: General Anesthesia Pt an Appropriate Candidate for the Planned Anesthesia: Yes Alternatives and Risks of Anesthesia Discussed w Pt/Guardian: Yes Pt/Guardian Understands and Agrees with Anesthesia Plan: Yes PreAnesthesia Questionnaire - Past Health History Medical/Surgical History: Denies Medical/Surgical History HEENT History: Reports: None Cardiovascular History: Reports: None Respiratory History: Reports: None Gastrointestinal History: Reports: None Genitourinary History: Reports: None Musculoskeletal History: Reports: None Neurological History: Reports: None Psychiatric History: Reports: Addiction, Anxiety Endocrine/Metabolic History: Reports: None Hematologic History: Reports: None Immunologic History: Reports: None Oncologic (Cancer) History: Reports: None Dermatologic History: Reports: None - Infectious Disease History Infectious Disease History: Reports: None - Past Surgical History Other HEENT Surgeries/Procedures: unable to verify Other Cardiovascular Surgeries/Procedures: unable to verify Other Respiratory Surgeries/Procedures: unable to verify Other GI Surgeries/Procedures: unable to verify Other Male Surgeries/Procedures: unable to verify Other Endocrine Surgeries/Procedures: unable to verify Other Neurological Surgeries/Procedures: unable to verify Other Musculoskeletal Surgeries/Procedures:: unable to verify - SUBSTANCE USE Smoking Status *Q: Current Every Day Smoker Tobacco Use Within Last Twelve Months: Cigarettes Second Hand Smoke Exposure: No Recreational Drug Use History: Yes Recreational Drug Type: Reports: Heroin (Daily for the last month), Marijuana/ Hashish (Several times a month) Recreational Drug Last Use: 3 days ago - HOME MEDS Home Medications: Home Meds . [No Known Home Meds] 03/20/19 [History] - CURRENT (IN HOUSE) MEDS Current Meds: Current Medications Sodium Chloride (Normal Saline) 1,000 mls @ 125 mls/hr IV ASDIRECTED [facility]ACHEL Last Admin: 03/20/19 03:51 Dose: 125 mls/hr Vancomycin HCl 1 gm/ Sodium (Chloride) 250 mls @ 166 mls/hr IV Q8H [facility] TO [facility] Last Admin: 03/20/19 08:57 Dose: 166 mls/hr Sodium Chloride (Saline Flush) 10 ml FLUSH ASDIRECTED PRN PRN Reason: Keep Vein Open Sodium Chloride (Saline Flush) 2.5 ml FLUSH ASDIRECTED PRN PRN Reason: Keep Vein Open Tramadol HCl (Ultram) 25 mg PO Q6H PRN PRN Reason: Pain Last Admin: 03/20/19 07:38 Dose: 25 mg Vancomycin HCl (Pharmacy To Dose - Vancomycin) 1 dose .XX ASDIRECTED [facility]ACHEL Discontinued Medications Sodium Chloride (Normal Saline) 1,000 mls @ 999 mls/hr IV STAT ONE Stop: 03/20/19 02:05 Last Admin: 03/20/19 01:35 Dose: 999 mls/hr Vancomycin HCl 1 gm/ Sodium (Chloride) 250 mls @ 166 mls/hr IV ONETIME ONE Stop: 03/20/19 02:35 Last Admin: 03/20/19 01:35 Dose: 166 mls/hr Vancomycin HCl 1 gm/ Sodium (Chloride) 250 mls @ 166 mls/hr IV Q12H [facility] Iopamidol (Isovue-370 (76%)) 100 ml IVPUSH ONETIME ONE Stop: 03/20/19 02:22 Last Admin: 03/20/19 02:33 Dose: 100 ml Ketorolac Tromethamine (Toradol) 30 mg IVPUSH ONETIME ONE Stop: 03/20/19 01:06 Last Admin: 03/20/19 01:35 Dose: 30 mg
[2019-03-20] MEDS ORDERED: Propofol 200 MG/20 ML SDV ONE (12:25)
[2019-03-20] MEDS ORDERED: Midazolam 1 MG/ML 2 ML SDV ONE (12:25)
[2019-03-20] MEDS ORDERED: fentaNYL 100 MCG/2 ML SDV ONE ×3 (12:25→13:00)
[2019-03-20] MEDS ORDERED: Ondansetron 4 MG/2 ML SDV ONE (12:27)
[2019-03-20] MEDS ORDERED: Glycopyrrolate 0.2 MG/ML SDV ONE (12:27)
[2019-03-20] MEDS ORDERED: Lidocaine 2% 5 ML SDV ONE (12:27)
[2019-03-20] MEDS ORDERED: Ketorolac 30 MG/ML SDV ONE (12:27)
[2019-03-20] MEDS ORDERED: Sodium Chloride 0.9% 20 ML ONE (12:58)
[2019-03-20] MEDS ORDERED: ceFAZolin 1 GM Vial ONE (12:58)
[2019-03-20] MEDS ORDERED: Aluminum Hydroxide/Magnesium Hydroxide/Simethicone Susp 30 ML Cup PO PRN (13:31)
[2019-03-20] MEDS ORDERED: oxyCODONE 5 MG Tab PO PRN (13:31)
[2019-03-20] MEDS ORDERED: Acetaminophen 1,000 MG in Premix Bag 1 BAG IV ONE (13:32)
--- NOTE | 2019-03-20 13:36 | PCM.OPNOTE ---
- General Post-Op/Procedure Note Date of Surgery/Procedure: 03/20/19 Operative Procedure(s): Incision and drainage of right elbow subcutaneous abscess Pre Op Diagnosis: Right elbow subcutaneous abscess Post-Op Diagnosis: Right elbow subcutaneous abscess Anesthesia Technique: General LMA Primary Surgeon: Zafar Tate Desk Pen Set Assembler: Norah Barney Reason Desk Pen Set Assembler Was Necessary: Retraction and positioning. EBL in mLs: 10 Complications: None Condition: Good Free Text/Narrative:: Patient is a 23 year old male with a right elbow subcutaneous abscess. The abscess was documented by CT scan. I discussed the risks and benefits of surgery with the patient and he consented to surgery. Patient was taken to the OR. After general anesthesia, he remained in a supine position. The right upper extremity was prepped and darped in the usual sterile manner. A 2.5 mm incision was made in the antecubital fossa over the palpable fluid collection. Immediate drainage of purulent material was noted. Culture swabs were taken. The wound was probed and irrigated with 3,000 ml of saline solution. No purulent fluid remained. A 1/4 inch [place] drain was placed in the wound and two 2-0 nylon sutures were used to close the wound loosely. A sterile dressing was applied. The patient was accompanied to the PACU in stable condition. Pain management: per hospitalist VTE prophylaxis: patient is ambulatory and not indicated for upper extremity soft tissue procedure Antibiotics: Continue Vancomycin and add Ancef Restrictions: None Intake & Output 03/19/19 03/20/19 03/20/19 22:59 06:59 14:59 Intake Total 250 Balance 250
[2019-03-20] MEDS ORDERED: HYDROmorphone 1 MG/ML Syringe IVPUSH ONE ×2 (13:44→18:00)
[2019-03-20] MEDS: fentaNYL 100 MCG/2 ML SDV IVPUSH PRN ×2 (13:47→13:52)
--- NOTE | 2019-03-20 14:10 | PCM.POSTAN ---
POST ANESTHESIA ASSESSMENT - MENTAL STATUS Mental Status: Alert, Oriented - VITAL SIGNS Vital Signs: Last Vital Signs Temp 37 C 03/20/19 13:26 Pulse 89 03/20/19 14:06 Resp 21 H 03/20/19 14:06 BP 126/58 L 03/20/19 14:06 Pulse Ox 97 03/20/19 14:06 - RESPIRATORY Respiratory Status: Respiratory Rate WNL, Airway Patent, O2 Saturation Stable - CARDIOVASCULAR CV Status: Pulse Rate WNL, Blood Pressure Stable - GASTROINTESTINAL GI Status: No Symptoms - PAIN Pain Score: 2 - POST OP HYDRATION Hydration Status: Adequate & Stable - OBSERVATIONS Free Text/Narrative:: no anesthesia problems
[2019-03-20] MEDS ORDERED: Acetaminophen 500 MG Tab PO PRN (14:33)
--- NOTE | 2019-03-20 14:50 | PCM48HPAN ---
Post Anesthesia Note - EVALUATION WITHIN 48HRS OF ANESTHETIC Vital Signs in Normal Range: Yes Patient Participated in Evaluation: Yes Respiratory Function Stable: Yes Airway Patent: Yes Cardiovascular Function Stable: Yes Hydration Status Stable: Yes Pain Control Satisfactory: Yes Nausea and Vomiting Control Satisfactory: Yes Mental Status Recovered: Yes Vital Signs: Last Vital Signs Temp 36.7 C 03/20/19 14:15 Pulse 76 03/20/19 14:32 Resp 14 03/20/19 14:32 BP 132/68 03/20/19 14:32 Pulse Ox 97 03/20/19 14:32 - COMMENTS/OBSERVATIONS Free Text/Narrative:: no anesthesia problems
[2019-03-20] MEDS ORDERED: ceFAZolin 2 GM in Premix Bag 1 BAG IV SCH (21:00)
[2019-03-21] MEDS: traMADol 50 MG Tab PO PRN ×4 (00:39→23:19)
[2019-03-21 07:12] LABS: BLOOD UREA NITROGEN,BUN 8 mg/dL (7.0-18.0); CARBON DIOXIDE,CO2 26.8 mmol/L (21.0-32.0); CHLORIDE,CL 104 mmol/L (98-107); GLUCOSE RANDOM 98 mg/dL (74-106); POTASSIUM,K 3.7 mmol/L (3.5-5.1); SODIUM,NA 139 mmol/L (136-148)
--- NOTE | 2019-03-21 08:13 | PCM.SURGPN ---
- General Info Date of Service: 03/21/19 (0800) Date of Surgery/Procedure: 03/20/19 (s/p I&D Rt elbow SQ abscess) POD#: 1 Post-Op Diagnosis: Right elbow SQ abscess Functional Status: Reports: Pain Controlled - Review of Systems General: Denies: Fever Skin: Reports: Other (Pain right elbow) Psychiatric: Reports: No Symptoms - Patient Data Vitals - Most Recent: Last Vital Signs Temp 36.6 C 03/21/19 07:48 Pulse 82 03/21/19 07:48 Resp 16 03/21/19 07:48 BP 118/84 03/21/19 07:48 Pulse Ox 99 03/21/19 07:48 Weight - Most Recent: 75.024 kg I&O - Last 24 Hours: Intake & Output 03/20/19 03/21/19 03/21/19 22:59 06:59 14:59 Intake Total 1393 700 Balance 1393 700 Lab Results Last 24 Hrs: Laboratory Results - last 24 hr 03/21/19 03/21/19 Range/Units 06:23 06:23 WBC 12.56 H (4.0-11.0) K/uL RBC 4.23 L (4.50-5.90) M/uL Hgb 13.1 (13.0-17.0) g/dL Hct 38.4 (38.0-50.0) % MCV 90.8 (80.0-98.0) fL MCH 31.0 (27.0-32.0) pg MCHC 34.1 (31.0-37.0) g/dL RDW Std Deviation 41.5 (28.0-62.0) fl RDW Coeff of Patricia 13 (11.0-15.0) % Plt Count 263 (150-400) K/uL MPV 9.70 (7.40-12.00) fL Neut % (Auto) 75.9 (48.0-80.0) % Lymph % (Auto) 14.7 L (16.0-40.0) % [place] % (Auto) 8.1 (0.0-15.0) % Eos % (Auto) 1.1 (0.0-7.0) % Baso % (Auto) 0.2 (0.0-1.5) % Neut # (Auto) 9.5 H (1.4-5.7) K/uL Lymph # (Auto) 1.9 (0.6-2.4) K/uL [place] # (Auto) 1.0 H (0.0-0.8) K/uL Eos # (Auto) 0.1 (0.0-0.7) K/uL Baso # (Auto) 0.0 (0.0-0.1) K/uL Nucleated RBC % 0.0 /100WBC Nucleated RBCs # 0 K/uL Sodium 139 (136-148) mmol/L Potassium 3.7 (3.5-5.1) mmol/L Chloride 104 (98-107) mmol/L Carbon Dioxide 26.8 (21.0-32.0) mmol/L BUN 8 (7.0-18.0) mg/dL Creatinine 0.8 (0.8-1.3) mg/dL Est Cr Clr Drug Dosing 118.19 mL/min Estimated GFR (MDRD) > 60.0 ml/min Glucose 98 (74-106) mg/dL Calcium 8.4 L (8.5-10.1) mg/dL Total Bilirubin 0.9 (0.2-1.0) mg/dL AST 17 (15-37) IU/L ALT 18 (14-63) IU/L Alkaline Phosphatase 72 (46-116) U/L Total Protein 6.5 (6.4-8.2) g/dL Albumin 3.0 L (3.4-5.0) g/dL Globulin 3.5 (2.6-4.0) g/dL Albumin/Globulin Ratio 0.9 (0.9-1.6) David Results Last 24 Hrs: Microbiology 03/20/19 01:20 Aerobic Blood Culture - Preliminary Blood - Venous - Lab Draw NO GROWTH AFTER 1 DAY Anaerobic Blood Culture - Preliminary NO GROWTH AFTER 1 DAY 03/20/19 01:30 Aerobic Blood Culture - Preliminary Blood - Venous NO GROWTH AFTER 1 DAY Anaerobic Blood Culture - Preliminary NO GROWTH AFTER 1 DAY 03/20/19 13:08 Gram Stain - Preliminary Arm, Right Med Orders - Current: Current Medications Acetaminophen (Tylenol Extra Strength) 1,000 mg PO Q6H PRN PRN Reason: Pain Al Hydroxide/Mg Hydroxide (Mag-Al Plus) 30 ml PO Q4H PRN PRN Reason: Indigestion Fentanyl (Sublimaze) 50 - 100 mcg IVPUSH Q5M PRN PRN Reason: Pain (severe 7-10) Last Admin: 03/20/19 13:52 Dose: 50 mcg Sodium Chloride (Normal Saline) 1,000 mls @ 125 mls/hr IV ASDIRECTED [facility] Last Admin: 03/20/19 14:28 Dose: 125 mls/hr Vancomycin HCl 1 gm/ Sodium (Chloride) 250 mls @ 166 mls/hr IV Q8H [facility] Last Admin: 03/21/19 00:42 Dose: 166 mls/hr Sodium Chloride (Saline Flush) 10 ml FLUSH ASDIRECTED PRN PRN Reason: Keep Vein Open Sodium Chloride (Saline Flush) 2.5 ml FLUSH ASDIRECTED PRN PRN Reason: Keep Vein Open Sodium Chloride (Saline Flush) 10 ml FLUSH ASDIRECTED PRN PRN Reason: Keep Vein Open Sodium Chloride (Saline Flush) 2.5 ml FLUSH ASDIRECTED PRN PRN Reason: Keep Vein Open Tramadol HCl (Ultram) 25 mg PO Q6H PRN PRN Reason: Pain Last Admin: 03/21/19 00:39 Dose: 25 mg Vancomycin HCl (Pharmacy To Dose - Vancomycin) 1 dose .XX ASDIRECTED [facility] Discontinued Medications Cefazolin Sodium (Ancef) Confirm Administered Dose 2 gm .ROUTE .STK-MED ONE Stop: 03/20/19 12:59 Fentanyl (Sublimaze) Confirm Administered Dose 100 mcg .ROUTE .STK-MED ONE Stop: 03/20/19 12:26 Fentanyl (Sublimaze) Confirm Administered Dose 100 mcg .ROUTE .STK-MED ONE Stop: 03/20/19 12:58 Fentanyl (Sublimaze) Confirm Administered Dose 100 mcg .ROUTE .STK-MED ONE Stop: 03/20/19 13:01 Glycopyrrolate (Robinul) Confirm Administered Dose 0.2 mg .ROUTE .STK-MED ONE Stop: 03/20/19 12:28 Hydromorphone HCl (Dilaudid) 1 mg IVPUSH ONETIME ONE Stop: 03/20/19 13:45 Last Admin: 03/20/19 14:46 Dose: Not Given Hydromorphone HCl (Dilaudid) 1 mg IVPUSH ONETIME ONE Stop: 03/20/19 18:01 Sodium Chloride (Normal Saline) 1,000 mls @ 999 mls/hr IV STAT ONE Stop: 03/20/19 02:05 Last Admin: 03/20/19 01:35 Dose: 999 mls/hr Vancomycin HCl 1 gm/ Sodium (Chloride) 250 mls @ 166 mls/hr IV ONETIME ONE Stop: 03/20/19 02:35 Last Admin: 03/20/19 01:35 Dose: 166 mls/hr Vancomycin HCl 1 gm/ Sodium (Chloride) 250 mls @ 166 mls/hr IV Q12H [facility] Sodium Chloride (Normal Saline) Confirm Administered Dose 20 mls @ as directed .ROUTE .STK-MED ONE Stop: 03/20/19 12:59 Acetaminophen (Ofirmev) Confirm Administered Dose 100 mls @ as directed .ROUTE .STK-MED ONE Stop: 03/20/19 13:29 Last Admin: 03/20/19 14:27 Dose: Not Given Acetaminophen 1,000 mg/ Premix 100 mls @ 400 mls/hr IV NOW ONE Stop: 03/20/19 13:46 Last Admin: 03/20/19 13:31 Dose: 400 mls/hr Cefazolin Sodium/Dextrose 2 gm (/ Premix) 50 mls @ 100 mls/hr IV Q8H [facility] Stop: 03/20/19 22:14 Last Admin: 03/20/19 20:50 Dose: 100 mls/hr Iopamidol (Isovue-370 (76%)) 100 ml IVPUSH ONETIME ONE Stop: 03/20/19 02:22 Last Admin: 03/20/19 02:33 Dose: 100 ml Ketorolac Tromethamine (Toradol) 30 mg IVPUSH ONETIME ONE Stop: 03/20/19 01:06 Last Admin: 03/20/19 01:35 Dose: 30 mg Ketorolac Tromethamine (Toradol) Confirm Administered Dose 30 mg .ROUTE .STK- MED ONE Stop: 03/20/19 12:28 Lidocaine (Xylocaine-Mpf 2%) Confirm Administered Dose 5 ml .ROUTE .STK-MED ONE Stop: 03/20/19 12:28 Midazolam HCl (Versed 1 Mg/Ml) Confirm Administered Dose 2 mg .ROUTE .STK-MED ONE Stop: 12/16/19 12:26 Ondansetron HCl (Zofran) Confirm Administered Dose 4 mg .ROUTE .STK-MED ONE Stop: 03/20/19 12:28 Oxycodone HCl (Oxycodone) 5 - 10 mg PO Q4H PRN PRN Reason: Pain Propofol (Diprivan 20 Ml) Confirm Administered Dose 200 mg .ROUTE .STK-MED ONE Stop: 03/20/19 12:26 - Exam Wound/Incisions: Dressing Dry and Intact (Dried bloody drainage on surgical dressing, minimal quantity), Erythema (erythema decreased by 50% compared to yesterday's outline), Erythema Improving Quality Assessment: No: DVT Prophylaxis (refusing SCDs) General: Alert, Oriented, Cooperative, No Acute Distress HEENT: Pupils Equal Lungs: Normal Respiratory Effort Cardiovascular: Regular Rate Extremities: Normal Range of Motion, Other (Rt Radial pulse 2+ Sensation grossly intact to RUE.) Skin: Warm, Dry Neurological: Normal Speech Psy/Mental Status: Alert, Normal Mood Physical Findings Comment:: Surgical incision intact with 3 sutures. No active drainage. Pyatt dressing intact. Sepsis Event Note - Evaluation Sepsis Screening Result: No Definite Risk - Focused Exam Vital Signs: Vital Signs Temp Pulse Resp BP Pulse Ox 03/21/19 07:48 36.6 C 82 16 118/84 99 03/21/19 03:59 37.1 C 67 15 132/65 96 03/21/19 00:00 36.9 C 75 15 127/76 99 Date Exam was Performed: 03/21/19 Time Exam was Performed: 08:08 - Problem List Review Problem List Initiated/Reviewed/Updated: Yes - My Orders Last 24 Hours: Active Orders 24 hr Category Date Time Status Antiembolic Devices [RC] PER UNIT ROUTINE Care 03/20/19 12:50 Active Communication Order [RC] PRN Care 03/20/19 13:31 Active Neurovascular Check [RC] Q2HR Care 03/20/19 13:31 Active Vital Signs [RC] PER UNIT ROUTINE Care 03/20/19 13:31 Active Vital Signs [RC] Q4H Care 03/20/19 08:00 Active Wound Care [RC] DAILY Care 03/20/19 13:31 Active Regular Diet [DIET] Diet 03/20/19 Dinner Active ANAEROBIC CULTURE Routine Lab 03/20/19 13:08 Received CULTURE WOUND [RM] Routine Lab 03/20/19 13:08 Received GRAM STAIN [RM] Routine Lab 03/20/19 13:08 Results VANCOMYCIN TROUGH [CHEM] Routine Lab 03/21/19 08:00 Ordered Acetaminophen [Tylenol Extra Strength] Med 03/20/19 14:33 Active 1,000 mg PO Q6H PRN Alum Hydrox/Mag Hydrox/Simeth [Mag-Al Plus] Med 03/20/19 13:31 Active 30 ml PO Q4H PRN Sodium Chloride 0.9% [Saline Flush] Med 03/20/19 13:31 Active 10 ml FLUSH ASDIRECTED PRN Sodium Chloride 0.9% [Saline Flush] Med 03/20/19 13:31 Active 2.5 ml FLUSH ASDIRECTED PRN Vancomycin [Vancocin] 1 gm Med 03/20/19 09:00 Active Sodium Chloride 0.9% [Normal Saline (AdvBag)] 250 ml IV Q8H fentaNYL [Sublimaze] Med 03/20/19 13:44 Active 50 - 100 mcg IVPUSH Q5M PRN Convert IV to Saline Lock [OM.PC] PRN Oth 03/20/19 13:45 Ordered Convert IV to Saline Lock [OM.PC] PRN Oth 03/21/19 13:45 Ordered Sequential Compression Device [OM.PC] Routine Oth 03/20/19 12:50 Ordered Code Status [Resuscitation Status] Routine Resus Stat 03/20/19 09:38 Ordered Medication Orders Acetaminophen (Tylenol Extra Strength) 1,000 mg PO Q6H PRN PRN Reason: Pain Al Hydroxide/Mg Hydroxide (Mag-Al Plus) 30 ml PO Q4H PRN PRN Reason: Indigestion Fentanyl (Sublimaze) 50 - 100 mcg IVPUSH Q5M PRN PRN Reason: Pain (severe 7-10) Last Admin: 03/20/19 13:52 Dose: 50 mcg Admin: 03/20/19 13:47 Dose: 100 mcg Sodium Chloride (Normal Saline) 1,000 mls @ 125 mls/hr IV ASDIRECTED [facility]ACHEL Last Admin: 03/20/19 14:28 Dose: 125 mls/hr Infusion: 03/20/19 11:51 Dose: 125 mls/hr Admin: 03/20/19 03:51 Dose: 125 mls/hr Vancomycin HCl 1 gm/ Sodium (Chloride) 250 mls @ 166 mls/hr IV Q8H [facility] Last Admin: 03/21/19 00:42 Dose: 166 mls/hr Infusion: 03/20/19 17:33 Dose: 166 mls/hr Admin: 03/20/19 16:02 Dose: 166 mls/hr Infusion: 03/20/19 10:28 Dose: 166 mls/hr Admin: 03/20/19 08:57 Dose: 166 mls/hr Sodium Chloride (Saline Flush) 10 ml FLUSH ASDIRECTED PRN PRN Reason: Keep Vein Open Sodium Chloride (Saline Flush) 2.5 ml FLUSH ASDIRECTED PRN PRN Reason: Keep Vein Open Sodium Chloride (Saline Flush) 10 ml FLUSH ASDIRECTED PRN PRN Reason: Keep Vein Open Sodium Chloride (Saline Flush) 2.5 ml FLUSH ASDIRECTED PRN PRN Reason: Keep Vein Open Tramadol HCl (Ultram) 25 mg PO Q6H PRN PRN Reason: Pain Last Admin: 03/21/19 00:39 Dose: 25 mg Admin: 03/20/19 07:38 Dose: 25 mg Vancomycin HCl (Pharmacy To Dose - Vancomycin) 1 dose .XX ASDIRECTED [facility]ACHEL - Assessment Assessment (Free Text/Narrative):: s/p I&D Right Elbow SQ abscess POD#1 - Plan Plan (Free Text/Narrative):: WBC improving, decreased from 17.78 to 12.56 He was receiving Vancomycin 1 gm IV prior to surgery. Ancef was given pre-op, and Ancef 2 gm IV ordered after I&D after surgery. Dressing changed. Pyatt drain intact. Drainage on dressing was bloody, and dry this morning. No active drainage from surgical site, intact by 3 sutures. Erythema decreased in size by 50% Neurovascular exam RUE WNL. Plan : Await Cultures results which were obtained in OR yesterday. Continue IV Vancomycin and Ancef. Reinforce dressing prn. Discussed discharge plan with Unruly, expecting this to be tomorrow once culture results received. Unruly had no additional questions. Continue hospitalist services as well.
--- NOTE | 2019-03-21 09:16 | PCM.PN ---
<Reyna Mendes - Last Filed: 03/21/19 11:42> - General Info Date of Service: 03/21/19 Subjective Update: Patient seen at bedside; status post incision and drainage with [place] drain applied per surgery: Patient does not endorse any complaints or concerns this morning. Denies any pain or chills. Expressed understand that he may be here for another 24 hours. Does endorse being able to stretch his arm out little further this morning compared to yesterday. Functional Status: Reports: Pain Controlled - Review of Systems General: Denies: Fever, Weakness, Chills HEENT: Denies: Sore Throat Pulmonary: Denies: Shortness of Breath, Cough Cardiovascular: Denies: Chest Pain, Palpitations Gastrointestinal: Denies: Abdominal Pain, Constipation, Diarrhea, Nausea, Vomiting Musculoskeletal: Denies: Arm Pain Neurological: Denies: Confusion, Headache - Patient Data Vitals - Most Recent: Last Vital Signs Temp 98 F 03/21/19 07:48 Pulse 82 03/21/19 07:48 Resp 16 03/21/19 07:48 BP 118/84 03/21/19 07:48 Pulse Ox 99 03/21/19 07:48 Weight - Most Recent: 75.024 kg I&O - Last 24 Hours: Intake & Output 03/20/19 03/21/19 03/21/19 22:59 06:59 14:59 Intake Total 1393 700 Balance 1393 700 Lab Results Last 24 Hours: Laboratory Results - last 24 hr 03/21/19 03/21/19 03/21/19 Range/Units 06:23 06:23 08:00 WBC 12.56 H (4.0-11.0) K/uL RBC 4.23 L (4.50-5.90) M/uL Hgb 13.1 (13.0-17.0) g/dL Hct 38.4 (38.0-50.0) % MCV 90.8 (80.0-98.0) fL MCH 31.0 (27.0-32.0) pg MCHC 34.1 (31.0-37.0) g/dL RDW Std Deviation 41.5 (28.0-62.0) fl RDW Coeff of Patricia 13 (11.0-15.0) % Plt Count 263 (150-400) K/uL MPV 9.70 (7.40-12.00) fL Neut % (Auto) 75.9 (48.0-80.0) % Lymph % (Auto) 14.7 L (16.0-40.0) % [place] % (Auto) 8.1 (0.0-15.0) % Eos % (Auto) 1.1 (0.0-7.0) % Baso % (Auto) 0.2 (0.0-1.5) % Neut # (Auto) 9.5 H (1.4-5.7) K/uL Lymph # (Auto) 1.9 (0.6-2.4) K/uL [place] # (Auto) 1.0 H (0.0-0.8) K/uL Eos # (Auto) 0.1 (0.0-0.7) K/uL Baso # (Auto) 0.0 (0.0-0.1) K/uL Nucleated RBC % 0.0 /100WBC Nucleated RBCs # 0 K/uL Sodium 139 (136-148) mmol/L Potassium 3.7 (3.5-5.1) mmol/L Chloride 104 (98-107) mmol/L Carbon Dioxide 26.8 (21.0-32.0) mmol/L BUN 8 (7.0-18.0) mg/dL Creatinine 0.8 (0.8-1.3) mg/dL Est Cr Clr Drug Dosing 118.19 mL/min Estimated GFR (MDRD) > 60.0 ml/min Glucose 98 (74-106) mg/dL Calcium 8.4 L (8.5-10.1) mg/dL Total Bilirubin 0.9 (0.2-1.0) mg/dL AST 17 (15-37) IU/L ALT 18 (14-63) IU/L Alkaline Phosphatase 72 (46-116) U/L Total Protein 6.5 (6.4-8.2) g/dL Albumin 3.0 L (3.4-5.0) g/dL Globulin 3.5 (2.6-4.0) g/dL Albumin/Globulin Ratio 0.9 (0.9-1.6) Vancomycin Trough 9.4 (5.0-10.0) ug/mL David Results Last 24 Hours: Microbiology 03/20/19 01:20 Aerobic Blood Culture - Preliminary Blood - Venous - Lab Draw NO GROWTH AFTER 1 DAY Anaerobic Blood Culture - Preliminary NO GROWTH AFTER 1 DAY 03/20/19 01:30 Aerobic Blood Culture - Preliminary Blood - Venous NO GROWTH AFTER 1 DAY Anaerobic Blood Culture - Preliminary NO GROWTH AFTER 1 DAY 03/20/19 13:08 Gram Stain - Preliminary Arm, Right Med Orders - Current: Current Medications Acetaminophen (Tylenol Extra Strength) 1,000 mg PO Q6H PRN PRN Reason: Pain Al Hydroxide/Mg Hydroxide (Mag-Al Plus) 30 ml PO Q4H PRN PRN Reason: Indigestion Fentanyl (Sublimaze) 50 - 100 mcg IVPUSH Q5M PRN PRN Reason: Pain (severe 7-10) Last Admin: 03/20/19 13:52 Dose: 50 mcg Sodium Chloride (Normal Saline) 1,000 mls @ 125 mls/hr IV ASDIRECTED [facility] Last Admin: 03/20/19 14:28 Dose: 125 mls/hr Vancomycin HCl 1 gm/ Sodium (Chloride) 250 mls @ 166 mls/hr IV Q8H [facility] Last Admin: 03/21/19 00:42 Dose: 166 mls/hr Sodium Chloride (Saline Flush) 10 ml FLUSH ASDIRECTED PRN PRN Reason: Keep Vein Open Sodium Chloride (Saline Flush) 2.5 ml FLUSH ASDIRECTED PRN PRN Reason: Keep Vein Open Sodium Chloride (Saline Flush) 10 ml FLUSH ASDIRECTED PRN PRN Reason: Keep Vein Open Sodium Chloride (Saline Flush) 2.5 ml FLUSH ASDIRECTED PRN PRN Reason: Keep Vein Open Tramadol HCl (Ultram) 25 mg PO Q6H PRN PRN Reason: Pain Last Admin: 03/21/19 00:39 Dose: 25 mg Vancomycin HCl (Pharmacy To Dose - Vancomycin) 1 dose .XX ASDIRECTED [facility] Discontinued Medications Cefazolin Sodium (Ancef) Confirm Administered Dose 2 gm .ROUTE .STK-MED ONE Stop: 03/20/19 12:59 Fentanyl (Sublimaze) Confirm Administered Dose 100 mcg .ROUTE .STK-MED ONE Stop: 03/20/19 12:26 Fentanyl (Sublimaze) Confirm Administered Dose 100 mcg .ROUTE .STK-MED ONE Stop: 03/20/19 12:58 Fentanyl (Sublimaze) Confirm Administered Dose 100 mcg .ROUTE .STK-MED ONE Stop: 03/20/19 13:01 Glycopyrrolate (Robinul) Confirm Administered Dose 0.2 mg .ROUTE .STK-MED ONE Stop: 03/20/19 12:28 Hydromorphone HCl (Dilaudid) 1 mg IVPUSH ONETIME ONE Stop: 03/20/19 13:45 Last Admin: 03/20/19 14:46 Dose: Not Given Hydromorphone HCl (Dilaudid) 1 mg IVPUSH ONETIME ONE Stop: 03/20/19 18:01 Sodium Chloride (Normal Saline) 1,000 mls @ 999 mls/hr IV STAT ONE Stop: 03/20/19 02:05 Last Admin: 03/20/19 01:35 Dose: 999 mls/hr Vancomycin HCl 1 gm/ Sodium (Chloride) 250 mls @ 166 mls/hr IV ONETIME ONE Stop: 03/20/19 02:35 Last Admin: 03/20/19 01:35 Dose: 166 mls/hr Vancomycin HCl 1 gm/ Sodium (Chloride) 250 mls @ 166 mls/hr IV Q12H [facility] Sodium Chloride (Normal Saline) Confirm Administered Dose 20 mls @ as directed .ROUTE .STK-MED ONE Stop: 03/20/19 12:59 Acetaminophen (Ofirmev) Confirm Administered Dose 100 mls @ as directed .ROUTE .STK-MED ONE Stop: 03/20/19 13:29 Last Admin: 03/20/19 14:27 Dose: Not Given Acetaminophen 1,000 mg/ Premix 100 mls @ 400 mls/hr IV NOW ONE Stop: 03/20/19 13:46 Last Admin: 03/20/19 13:31 Dose: 400 mls/hr Cefazolin Sodium/Dextrose 2 gm (/ Premix) 50 mls @ 100 mls/hr IV Q8H [facility] Stop: 03/20/19 22:14 Last Admin: 03/20/19 20:50 Dose: 100 mls/hr Iopamidol (Isovue-370 (76%)) 100 ml IVPUSH ONETIME ONE Stop: 03/20/19 02:22 Last Admin: 03/20/19 02:33 Dose: 100 ml Ketorolac Tromethamine (Toradol) 30 mg IVPUSH ONETIME ONE Stop: 03/20/19 01:06 Last Admin: 03/20/19 01:35 Dose: 30 mg Ketorolac Tromethamine (Toradol) Confirm Administered Dose 30 mg .ROUTE .STK- MED ONE Stop: 03/20/19 12:28 Lidocaine (Xylocaine-Mpf 2%) Confirm Administered Dose 5 ml .ROUTE .STK-MED ONE Stop: 03/20/19 12:28 Midazolam HCl (Versed 1 Mg/Ml) Confirm Administered Dose 2 mg .ROUTE .STK-MED ONE Stop: 03/20/19 12:26 Ondansetron HCl (Zofran) Confirm Administered Dose 4 mg .ROUTE .STK-MED ONE Stop: 03/20/19 12:28 Oxycodone HCl (Oxycodone) 5 - 10 mg PO Q4H PRN PRN Reason: Pain Propofol (Diprivan 20 Ml) Confirm Administered Dose 200 mg .ROUTE .STK-MED ONE Stop: 03/20/19 12:26 - Exam General: Alert, Oriented HEENT: EOMI Neck: Supple Lungs: Clear to Auscultation, Normal Respiratory Effort Cardiovascular: Regular Rate, Regular Rhythm GI/Abdominal Exam: Soft, Non-Tender Back Exam: Full Range of Motion Extremities: Other (right arm: dressing and drain in-situ; erythmea improving ; marked decrease compared to line of demarcation . sensation intact; FROM ) Wound/Incisions: Healing Well, Dressing Dry and Intact Neurological: No New Focal Deficit Psy/Mental Status: Alert, Normal Mood Sepsis Event Note - Evaluation Sepsis Screening Result: No Definite Risk - Focused Exam Vital Signs: Vital Signs Temp Pulse Resp BP Pulse Ox 03/21/19 07:48 98 F 82 16 118/84 99 03/21/19 03:59 98.8 F 67 15 132/65 96 03/21/19 00:00 98.4 F 75 15 127/76 99 Date Exam was Performed: 03/21/19 Time Exam was Performed: 11:42 - Problem List Review Problem List Initiated/Reviewed/Updated: Yes - My Orders Last 24 Hours: My Active Orders 03/20/19 09:38 Code Status [Resuscitation Status] Routine 03/20/19 14:33 Acetaminophen [Tylenol Extra Strength] 1,000 mg PO Q6H PRN - Plan Plan:: Assessment 1. Cellulitis with abscess formation of right antecubital fossa secondary to trauma and history of IV drug abuse 2. Leukocytosis secondary to above: improving 3. Hx IV drug abuse Plan: 1. Admit to observation. N.p.o. after midnight/regular diet thereafter. Full code. Activity up ad brii. DVT prophylaxis: SCDs. 2. Cellulitis; continue vancomycin AND Ancef until blood cultures/ sensitivities return. Patient has been afebrile since admission. 3. Consultation: Dr. Zafar Tate of orthopedics has been officially consulted : We appreciate his help in this case 4. Patient denies any history of hepatitis and/or HIV; will consider testing secondary to history of IV drug abuse. 5. Continue to monitor with AM labs; leucocytosis is improving but will await culture results to determine PO/home antibiotic regimen: per surgery recommendation Patient understood plan. All questions answered. <Daina Zhao - Last Filed: 03/25/19 14:28> - Patient Data Vitals - Most Recent: Last Vital Signs Temp 36.4 C 03/22/19 07:41 Pulse 82 03/22/19 07:41 Resp 14 03/22/19 07:41 BP 130/71 03/22/19 07:41 Pulse Ox 96 03/22/19 07:41 David Results Last 24 Hours: Microbiology 03/20/19 13:08 Wound Culture - Final Arm, Right - Lower Escherichia Coli Skin Wendy 03/20/19 01:20 Aerobic Blood Culture - Final Blood - Venous - Lab Draw NO GROWTH AFTER 5 DAYS Anaerobic Blood Culture - Final NO GROWTH AFTER 5 DAYS 03/20/19 01:30 Aerobic Blood Culture - Final Blood - Venous NO GROWTH AFTER 5 DAYS Anaerobic Blood Culture - Final NO GROWTH AFTER 5 DAYS 03/20/19 13:08 Anaerobic Culture - Preliminary Other - Arm, Right Med Orders - Current: Current Medications Discontinued Medications Acetaminophen (Tylenol Extra Strength) 1,000 mg PO Q6H PRN PRN Reason: Pain Al Hydroxide/Mg Hydroxide (Mag-Al Plus) 30 ml PO Q4H PRN PRN Reason: Indigestion Cefazolin Sodium (Ancef) Confirm Administered Dose 2 gm .ROUTE .STK-MED ONE Stop: 03/20/19 12:59 Fentanyl (Sublimaze) Confirm Administered Dose 100 mcg .ROUTE .STK-MED ONE Stop: 03/20/19 12:26 Fentanyl (Sublimaze) Confirm Administered Dose 100 mcg .ROUTE .STK-MED ONE Stop: 03/20/19 12:58 Fentanyl (Sublimaze) Confirm Administered Dose 100 mcg .ROUTE .STK-MED ONE Stop: 03/20/19 13:01 Fentanyl (Sublimaze) 50 - 100 mcg IVPUSH Q5M PRN PRN Reason: Pain (severe 7-10) Last Admin: 03/20/19 13:52 Dose: 50 mcg Glycopyrrolate (Robinul) Confirm Administered Dose 0.2 mg .ROUTE .STK-MED ONE Stop: 03/20/19 12:28 Hydromorphone HCl (Dilaudid) 1 mg IVPUSH ONETIME ONE Stop: 03/20/19 13:45 Last Admin: 03/20/19 14:46 Dose: Not Given Hydromorphone HCl (Dilaudid) 1 mg IVPUSH ONETIME ONE Stop: 03/20/19 18:01 Last Admin: 03/21/19 09:32 Dose: Not Given Sodium Chloride (Normal Saline) 1,000 mls @ 999 mls/hr IV STAT ONE Stop: 03/20/19 02:05 Last Admin: 03/20/19 01:35 Dose: 999 mls/hr Vancomycin HCl 1 gm/ Sodium (Chloride) 250 mls @ 166 mls/hr IV ONETIME ONE Stop: 03/20/19 02:35 Last Admin: 03/20/19 01:35 Dose: 166 mls/hr Sodium Chloride (Normal Saline) 1,000 mls @ 125 mls/hr IV ASDIRECTED [facility] Last Admin: 03/20/19 14:28 Dose: 125 mls/hr Vancomycin HCl 1 gm/ Sodium (Chloride) 250 mls @ 166 mls/hr IV Q12H [facility] Vancomycin HCl 1 gm/ Sodium (Chloride) 250 mls @ 166 mls/hr IV Q8H [facility] Last Admin: 03/22/19 08:13 Dose: 166 mls/hr Sodium Chloride (Normal Saline) Confirm Administered Dose 20 mls @ as directed .ROUTE .STK-MED ONE Stop: 03/20/19 12:59 Acetaminophen (Ofirmev) Confirm Administered Dose 100 mls @ as directed .ROUTE .STK-MED ONE Stop: 03/20/19 13:29 Last Admin: 03/20/19 14:27 Dose: Not Given Acetaminophen 1,000 mg/ Premix 100 mls @ 400 mls/hr IV NOW ONE Stop: 03/20/19 13:46 Last Admin: 03/20/19 13:31 Dose: 400 mls/hr Cefazolin Sodium/Dextrose 2 gm (/ Premix) 50 mls @ 100 mls/hr IV Q8H [facility] Stop: 03/20/19 22:14 Last Admin: 03/20/19 20:50 Dose: 100 mls/hr Iopamidol (Isovue-370 (76%)) 100 ml IVPUSH ONETIME ONE Stop: 03/20/19 02:22 Last Admin: 03/20/19 02:33 Dose: 100 ml Ketorolac Tromethamine (Toradol) 30 mg IVPUSH ONETIME ONE Stop: 03/20/19 01:06 Last Admin: 03/20/19 01:35 Dose: 30 mg Ketorolac Tromethamine (Toradol) Confirm Administered Dose 30 mg .ROUTE .STK- MED ONE Stop: 03/20/19 12:28 Lidocaine (Xylocaine-Mpf 2%) Confirm Administered Dose 5 ml .ROUTE .STK-MED ONE Stop: 03/20/19 12:28 Midazolam HCl (Versed 1 Mg/Ml) Confirm Administered Dose 2 mg .ROUTE .STK-MED ONE Stop: 03/20/19 12:26 Ondansetron HCl (Zofran) Confirm Administered Dose 4 mg .ROUTE .STK-MED ONE Stop: 03/20/19 12:28 Oxycodone HCl (Oxycodone) 5 - 10 mg PO Q4H PRN PRN Reason: Pain Propofol (Diprivan 20 Ml) Confirm Administered Dose 200 mg .ROUTE .STK-MED ONE Stop: 03/20/19 12:26 Sodium Chloride (Saline Flush) 10 ml FLUSH ASDIRECTED PRN PRN Reason: Keep Vein Open Sodium Chloride (Saline Flush) 2.5 ml FLUSH ASDIRECTED PRN PRN Reason: Keep Vein Open Sodium Chloride (Saline Flush) 10 ml FLUSH ASDIRECTED PRN PRN Reason: Keep Vein Open Sodium Chloride (Saline Flush) 2.5 ml FLUSH ASDIRECTED PRN PRN Reason: Keep Vein Open Tramadol HCl (Ultram) 25 mg PO Q6H PRN PRN Reason: Pain Last Admin: 03/22/19 07:58 Dose: 25 mg Vancomycin HCl (Pharmacy To Dose - Vancomycin) 1 dose .XX ASDIRECTED [facility] - Plan Plan:: I have seen and evaluated the patient and agree with the residents note unless specified in my note
[2019-03-22 06:44] LABS: BLOOD UREA NITROGEN,BUN 9 mg/dL (7.0-18.0); CARBON DIOXIDE,CO2 24.2 mmol/L (21.0-32.0); CHLORIDE,CL 104 mmol/L (98-107); GLUCOSE RANDOM 118 mg/dL (74-106); POTASSIUM,K 3.9 mmol/L (3.5-5.1); SODIUM,NA 139 mmol/L (136-148)
[2019-03-22] MEDS: traMADol 50 MG Tab PO PRN (07:58)
--- NOTE | 2019-03-22 14:20 | PCM.SURGPN ---
- General Info Date of Service: 03/22/19 (n) Date of Surgery/Procedure: 03/20/19 (s/p I&D Right elbow SQ Abscess) POD#: 2 Admission Diagnosis/Problem: Abscess of right forearm - Patient Data Vitals - Most Recent: Last Vital Signs Temp 36.4 C 03/22/19 07:41 Pulse 82 03/22/19 07:41 Resp 14 03/22/19 07:41 BP 130/71 03/22/19 07:41 Pulse Ox 96 03/22/19 07:41 Weight - Most Recent: 75.024 kg I&O - Last 24 Hours: Intake & Output 03/21/19 03/22/19 03/22/19 22:59 06:59 14:59 Intake Total 660 1370 250 Output Total 325 Balance 660 1045 250 Lab Results Last 24 Hrs: Laboratory Results - last 24 hr 03/22/19 03/22/19 Range/Units 05:37 05:37 WBC 12.27 H (4.0-11.0) K/uL RBC 4.57 (4.50-5.90) M/uL Hgb 14.2 (13.0-17.0) g/dL Hct 41.1 (38.0-50.0) % MCV 89.9 (80.0-98.0) fL MCH 31.1 (27.0-32.0) pg MCHC 34.5 (31.0-37.0) g/dL RDW Std Deviation 39.9 (28.0-62.0) fl RDW Coeff of Patricia 12 (11.0-15.0) % Plt Count 306 (150-400) K/uL MPV 9.80 (7.40-12.00) fL Neut % (Auto) 77.6 (48.0-80.0) % Lymph % (Auto) 14.2 L (16.0-40.0) % [place] % (Auto) 6.8 (0.0-15.0) % Eos % (Auto) 1.2 (0.0-7.0) % Baso % (Auto) 0.2 (0.0-1.5) % Neut # (Auto) 9.5 H (1.4-5.7) K/uL Lymph # (Auto) 1.7 (0.6-2.4) K/uL [place] # (Auto) 0.8 (0.0-0.8) K/uL Eos # (Auto) 0.2 (0.0-0.7) K/uL Baso # (Auto) 0.0 (0.0-0.1) K/uL Nucleated RBC % 0.0 /100WBC Nucleated RBCs # 0 K/uL Sodium 139 (136-148) mmol/L Potassium 3.9 (3.5-5.1) mmol/L Chloride 104 (98-107) mmol/L Carbon Dioxide 24.2 (21.0-32.0) mmol/L BUN 9 (7.0-18.0) mg/dL Creatinine 0.7 L (0.8-1.3) mg/dL Est Cr Clr Drug Dosing 135.08 mL/min Estimated GFR (MDRD) > 60.0 ml/min Glucose 118 H (74-106) mg/dL Calcium 8.9 (8.5-10.1) mg/dL Total Bilirubin 0.4 (0.2-1.0) mg/dL AST 13 L (15-37) IU/L ALT 19 (14-63) IU/L Alkaline Phosphatase 76 (46-116) U/L Total Protein 7.0 (6.4-8.2) g/dL Albumin 3.2 L (3.4-5.0) g/dL Globulin 3.8 (2.6-4.0) g/dL Albumin/Globulin Ratio 0.8 L (0.9-1.6) David Results Last 24 Hrs: Microbiology 03/20/19 01:20 Aerobic Blood Culture - Preliminary Blood - Venous - Lab Draw NO GROWTH AFTER 2 DAYS Anaerobic Blood Culture - Preliminary NO GROWTH AFTER 2 DAYS 03/20/19 01:30 Aerobic Blood Culture - Preliminary Blood - Venous NO GROWTH AFTER 2 DAYS Anaerobic Blood Culture - Preliminary NO GROWTH AFTER 2 DAYS Med Orders - Current: Current Medications Acetaminophen (Tylenol Extra Strength) 1,000 mg PO Q6H PRN PRN Reason: Pain Al Hydroxide/Mg Hydroxide (Mag-Al Plus) 30 ml PO Q4H PRN PRN Reason: Indigestion Fentanyl (Sublimaze) 50 - 100 mcg IVPUSH Q5M PRN PRN Reason: Pain (severe 7-10) Last Admin: 03/20/19 13:52 Dose: 50 mcg Vancomycin HCl 1 gm/ Sodium (Chloride) 250 mls @ 166 mls/hr IV Q8H [facility] Last Admin: 03/22/19 08:13 Dose: 166 mls/hr Sodium Chloride (Saline Flush) 10 ml FLUSH ASDIRECTED PRN PRN Reason: Keep Vein Open Sodium Chloride (Saline Flush) 2.5 ml FLUSH ASDIRECTED PRN PRN Reason: Keep Vein Open Sodium Chloride (Saline Flush) 10 ml FLUSH ASDIRECTED PRN PRN Reason: Keep Vein Open Sodium Chloride (Saline Flush) 2.5 ml FLUSH ASDIRECTED PRN PRN Reason: Keep Vein Open Tramadol HCl (Ultram) 25 mg PO Q6H PRN PRN Reason: Pain Last Admin: 03/22/19 07:58 Dose: 25 mg Discontinued Medications Cefazolin Sodium (Ancef) Confirm Administered Dose 2 gm .ROUTE .STK-MED ONE Stop: 03/20/19 12:59 Fentanyl (Sublimaze) Confirm Administered Dose 100 mcg .ROUTE .STK-MED ONE Stop: 03/20/19 12:26 Fentanyl (Sublimaze) Confirm Administered Dose 100 mcg .ROUTE .STK-MED ONE Stop: 03/20/19 12:58 Fentanyl (Sublimaze) Confirm Administered Dose 100 mcg .ROUTE .STK-MED ONE Stop: 03/20/19 13:01 Glycopyrrolate (Robinul) Confirm Administered Dose 0.2 mg .ROUTE .STK-MED ONE Stop: 03/20/19 12:28 Hydromorphone HCl (Dilaudid) 1 mg IVPUSH ONETIME ONE Stop: 03/20/19 13:45 Last Admin: 03/20/19 14:46 Dose: Not Given Hydromorphone HCl (Dilaudid) 1 mg IVPUSH ONETIME ONE Stop: 03/20/19 18:01 Last Admin: 03/21/19 09:32 Dose: Not Given Sodium Chloride (Normal Saline) 1,000 mls @ 999 mls/hr IV STAT ONE Stop: 03/20/19 02:05 Last Admin: 03/20/19 01:35 Dose: 999 mls/hr Vancomycin HCl 1 gm/ Sodium (Chloride) 250 mls @ 166 mls/hr IV ONETIME ONE Stop: 03/20/19 02:35 Last Admin: 03/20/19 01:35 Dose: 166 mls/hr Sodium Chloride (Normal Saline) 1,000 mls @ 125 mls/hr IV ASDIRECTED [facility] Last Admin: 03/20/19 14:28 Dose: 125 mls/hr Vancomycin HCl 1 gm/ Sodium (Chloride) 250 mls @ 166 mls/hr IV Q12H [facility] Sodium Chloride (Normal Saline) Confirm Administered Dose 20 mls @ as directed .ROUTE .STK-MED ONE Stop: 03/20/19 12:59 Acetaminophen (Ofirmev) Confirm Administered Dose 100 mls @ as directed .ROUTE .STK-MED ONE Stop: 03/20/19 13:29 Last Admin: 03/20/19 14:27 Dose: Not Given Acetaminophen 1,000 mg/ Premix 100 mls @ 400 mls/hr IV NOW ONE Stop: 03/20/19 13:46 Last Admin: 03/20/19 13:31 Dose: 400 mls/hr Cefazolin Sodium/Dextrose 2 gm (/ Premix) 50 mls @ 100 mls/hr IV Q8H [facility] Stop: 03/20/19 22:14 Last Admin: 03/20/19 20:50 Dose: 100 mls/hr Iopamidol (Isovue-370 (76%)) 100 ml IVPUSH ONETIME ONE Stop: 03/20/19 02:22 Last Admin: 03/20/19 02:33 Dose: 100 ml Ketorolac Tromethamine (Toradol) 30 mg IVPUSH ONETIME ONE Stop: 03/20/19 01:06 Last Admin: 03/20/19 01:35 Dose: 30 mg Ketorolac Tromethamine (Toradol) Confirm Administered Dose 30 mg .ROUTE .STK- MED ONE Stop: 03/20/19 12:28 Lidocaine (Xylocaine-Mpf 2%) Confirm Administered Dose 5 ml .ROUTE .STK-MED ONE Stop: 03/20/19 12:28 Midazolam HCl (Versed 1 Mg/Ml) Confirm Administered Dose 2 mg .ROUTE .STK-MED ONE Stop: 03/20/19 12:26 Ondansetron HCl (Zofran) Confirm Administered Dose 4 mg .ROUTE .STK-MED ONE Stop: 03/20/19 12:28 Oxycodone HCl (Oxycodone) 5 - 10 mg PO Q4H PRN PRN Reason: Pain Propofol (Diprivan 20 Ml) Confirm Administered Dose 200 mg .ROUTE .STK-MED ONE Stop: 03/20/19 12:26 Vancomycin HCl (Pharmacy To Dose - Vancomycin) 1 dose .XX ASDIRECTED [facility] Sepsis Event Note - Evaluation Sepsis Screening Result: No Definite Risk - Focused Exam Vital Signs: Vital Signs Temp Pulse Resp BP Pulse Ox 03/22/19 07:41 36.4 C 82 14 130/71 96 03/22/19 03:53 36.2 C 64 16 108/71 97 Date Exam was Performed: 03/27/19 Time Exam was Performed: 11:08 - Problem List Review Problem List Initiated/Reviewed/Updated: Yes - My Orders Last 24 Hours: Active Orders 24 hr Category Date Time Status Ready for Discharge [RC] PER UNIT ROUTINE Care 03/22/19 14:11 Ordered Convert IV to Saline Lock [OM.PC] PRN Oth 03/21/19 13:45 Ordered Medication Orders Acetaminophen (Tylenol Extra Strength) 1,000 mg PO Q6H PRN PRN Reason: Pain Al Hydroxide/Mg Hydroxide (Mag-Al Plus) 30 ml PO Q4H PRN PRN Reason: Indigestion Fentanyl (Sublimaze) 50 - 100 mcg IVPUSH Q5M PRN PRN Reason: Pain (severe 7-10) Last Admin: 03/20/19 13:52 Dose: 50 mcg Admin: 03/20/19 13:47 Dose: 100 mcg Vancomycin HCl 1 gm/ Sodium (Chloride) 250 mls @ 166 mls/hr IV Q8H [facility] Last Admin: 03/22/19 08:13 Dose: 166 mls/hr Infusion: 03/22/19 03:13 Dose: 166 mls/hr Admin: 03/22/19 01:42 Dose: 166 mls/hr Infusion: 03/21/19 20:12 Dose: 166 mls/hr Admin: 03/21/19 18:41 Dose: 166 mls/hr Infusion: 03/21/19 11:07 Dose: 166 mls/hr Admin: 03/21/19 09:36 Dose: 166 mls/hr Infusion: 03/21/19 02:13 Dose: 166 mls/hr Admin: 03/21/19 00:42 Dose: 166 mls/hr Infusion: 03/20/19 17:33 Dose: 166 mls/hr Admin: 03/20/19 16:02 Dose: 166 mls/hr Infusion: 03/20/19 10:28 Dose: 166 mls/hr Admin: 03/20/19 08:57 Dose: 166 mls/hr Sodium Chloride (Saline Flush) 10 ml FLUSH ASDIRECTED PRN PRN Reason: Keep Vein Open Sodium Chloride (Saline Flush) 2.5 ml FLUSH ASDIRECTED PRN PRN Reason: Keep Vein Open Sodium Chloride (Saline Flush) 10 ml FLUSH ASDIRECTED PRN PRN Reason: Keep Vein Open Sodium Chloride (Saline Flush) 2.5 ml FLUSH ASDIRECTED PRN PRN Reason: Keep Vein Open Tramadol HCl (Ultram) 25 mg PO Q6H PRN PRN Reason: Pain Last Admin: 03/22/19 07:58 Dose: 25 mg Admin: 03/21/19 23:19 Dose: 25 mg Admin: 03/21/19 16:05 Dose: 25 mg Admin: 03/21/19 09:55 Dose: 25 mg Admin: 03/21/19 00:39 Dose: 25 mg Admin: 03/20/19 07:38 Dose: 25 mg - Assessment Assessment (Free Text/Narrative):: s/p I&D Rt elbow abscess - Plan Plan (Free Text/Narrative):: Received phone call from nursing staff at [phone] with information that pt's arlyn drain was not intact, had fallen out. Acknowledged information and informed nurse that Alryn was planned to pulled/removed today before his discharge, awaiting preliminary/final culture report. To med/surg this afternoon/at current time, and pt not in his hospital bed. Nursing staff stated he had dressed himself earlier today and was anxiously waiting to leave. Final blood cultures negative. Preliminary culture reported, but without sensitivity. Discharge paperwork completed and Rx written for Terri.
--- NOTE | 2019-03-22 14:37 | PCM.DCSUM1 ---
<Reyna Mendes - Last Filed: 03/22/19 14:32> Discharge Summary - Hospital Course Free Text/Narrative:: Discharge summary Admission date: 03/20/2019 Discharge date Left AMA on 03/22/2019 Admission diagnoses: Right antecubital fossa cellulitis with multiloculated abscess History of IV drug abuse Discharge diagnoses: Right antecubital fossa cellulitis with multiloculated abscess status post I&D postop day 2 History of IV drug abuse Patient left AMA Consultations: Dr. Tate of orthopedic surgery Procedures: Incision and drainage Hospital course: Patient admitted with increasing redness and pain of right forearm with history of IV drug abuse; UDS positive for opioids and cannabis. Patient initiated on vancomycin; orthopedics consulted and recommended incision and drainage. I&D performed with [place] drain placed. Patient received vancomycin and 3 doses of Unasyn. Leukocytosis is improving but not resolved. Overnight [place] drain fell out spontaneously; following morning patient left AMA. Discharge condition: left AMA Disposition: Patient left AMA Discharge medications: Discharge instructions: Patient left AMA Follow-up: Patient left AMA - Discharge Data Discharge Date: 03/22/19 Discharge Disposition: Against Medical Advice 07 Condition: Good - Referral to Home Health Primary Care Physician: PCP None - Patient Summary/Data Operative Procedure(s) Performed: Incision and drainage of right elbow subcutaneous abscess Consults: Consultations 03/20/19 02:06 Consult to Physician [CONS] Stat - Patient Instructions Diet: Usual Diet as Tolerated Activity: As Tolerated Driving: May Drive Today Showering/Bathing: May Shower, No Tub Bathing/Swimming Wound/Incision Care: Change Dressing Daily (cover incision with clean dressing. change as needed. ) Notify Provider of: Fever, Increased Pain, Swelling and Redness Other/Special Instructions: Drainage is expected from your surgical site. Leave sutures intact until seen at follow up appt for removal. Cover incision site with clean dressing. change as needed. May shower (let water run over forearm. Pat dry after showering. No tub bathing). Ibuprofen or Tylenol as needed for pain. Monitor for any return of redness surrounding incision, and follow up with a provider at that time - Discharge Plan Prescriptions/Med Rec: Cephalexin [Keflex] 500 mg PO TID 10 Days capsule Home Medications: Home Meds Acetaminophen [Tylenol Extra Strength] 1,000 mg PO Q6H PRN tablet 03/22/19 [Rx] Cephalexin [Keflex] 500 mg PO TID 10 Days capsule 03/22/19 [Rx] Patient Handouts: Chemical Dependency, Skin Abscess, [id number], Incision and Drainage, Care After Referrals: Norah Barney NP [Nurse Practitioner] - 04/04/19 9:30 am (appt for suture removal) Reyna Mendes MD [Resident] - 03/28/19 1:30 pm - Discharge Summary/Plan Comment DC Time >30 min.: No (left AMA) - Patient Data Vitals - Most Recent: Last Vital Signs Temp 97.6 F 03/22/19 07:41 Pulse 82 03/22/19 07:41 Resp 14 03/22/19 07:41 BP 130/71 03/22/19 07:41 Pulse Ox 96 03/22/19 07:41 Weight - Most Recent: 75.024 kg I&O - Last 24 hours: Intake & Output 03/21/19 03/22/19 03/22/19 22:59 06:59 14:59 Intake Total 660 1370 250 Output Total 325 Balance 660 1045 250 Lab Results - Last 24 hrs: Laboratory Results - last 24 hr 03/22/19 03/22/19 Range/Units 05:37 05:37 WBC 12.27 H (4.0-11.0) K/uL RBC 4.57 (4.50-5.90) M/uL Hgb 14.2 (13.0-17.0) g/dL Hct 41.1 (38.0-50.0) % MCV 89.9 (80.0-98.0) fL MCH 31.1 (27.0-32.0) pg MCHC 34.5 (31.0-37.0) g/dL RDW Std Deviation 39.9 (28.0-62.0) fl RDW Coeff of Patricia 12 (11.0-15.0) % Plt Count 306 (150-400) K/uL MPV 9.80 (7.40-12.00) fL Neut % (Auto) 77.6 (48.0-80.0) % Lymph % (Auto) 14.2 L (16.0-40.0) % [place] % (Auto) 6.8 (0.0-15.0) % Eos % (Auto) 1.2 (0.0-7.0) % Baso % (Auto) 0.2 (0.0-1.5) % Neut # (Auto) 9.5 H (1.4-5.7) K/uL Lymph # (Auto) 1.7 (0.6-2.4) K/uL [place] # (Auto) 0.8 (0.0-0.8) K/uL Eos # (Auto) 0.2 (0.0-0.7) K/uL Baso # (Auto) 0.0 (0.0-0.1) K/uL Nucleated RBC % 0.0 /100WBC Nucleated RBCs # 0 K/uL Sodium 139 (136-148) mmol/L Potassium 3.9 (3.5-5.1) mmol/L Chloride 104 (98-107) mmol/L Carbon Dioxide 24.2 (21.0-32.0) mmol/L BUN 9 (7.0-18.0) mg/dL Creatinine 0.7 L (0.8-1.3) mg/dL Est Cr Clr Drug Dosing 135.08 mL/min Estimated GFR (MDRD) > 60.0 ml/min Glucose 118 H (74-106) mg/dL Calcium 8.9 (8.5-10.1) mg/dL Total Bilirubin 0.4 (0.2-1.0) mg/dL AST 13 L (15-37) IU/L ALT 19 (14-63) IU/L Alkaline Phosphatase 76 (46-116) U/L Total Protein 7.0 (6.4-8.2) g/dL Albumin 3.2 L (3.4-5.0) g/dL Globulin 3.8 (2.6-4.0) g/dL Albumin/Globulin Ratio 0.8 L (0.9-1.6) ZULY Results - Last 24 hrs: Microbiology 03/20/19 01:20 Aerobic Blood Culture - Preliminary Blood - Venous - Lab Draw NO GROWTH AFTER 2 DAYS Anaerobic Blood Culture - Preliminary NO GROWTH AFTER 2 DAYS 03/20/19 01:30 Aerobic Blood Culture - Preliminary Blood - Venous NO GROWTH AFTER 2 DAYS Anaerobic Blood Culture - Preliminary NO GROWTH AFTER 2 DAYS Med Orders - Current: Current Medications Acetaminophen (Tylenol Extra Strength) 1,000 mg PO Q6H PRN PRN Reason: Pain Al Hydroxide/Mg Hydroxide (Mag-Al Plus) 30 ml PO Q4H PRN PRN Reason: Indigestion Fentanyl (Sublimaze) 50 - 100 mcg IVPUSH Q5M PRN PRN Reason: Pain (severe 7-10) Last Admin: 03/20/19 13:52 Dose: 50 mcg Vancomycin HCl 1 gm/ Sodium (Chloride) 250 mls @ 166 mls/hr IV Q8H RACHEL Last Admin: 03/22/19 08:13 Dose: 166 mls/hr Sodium Chloride (Saline Flush) 10 ml FLUSH ASDIRECTED PRN PRN Reason: Keep Vein Open Sodium Chloride (Saline Flush) 2.5 ml FLUSH ASDIRECTED PRN PRN Reason: Keep Vein Open Sodium Chloride (Saline Flush) 10 ml FLUSH ASDIRECTED PRN PRN Reason: Keep Vein Open Sodium Chloride (Saline Flush) 2.5 ml FLUSH ASDIRECTED PRN PRN Reason: Keep Vein Open Tramadol HCl (Ultram) 25 mg PO Q6H PRN PRN Reason: Pain Last Admin: 03/22/19 07:58 Dose: 25 mg Discontinued Medications Cefazolin Sodium (Ancef) Confirm Administered Dose 2 gm .ROUTE .STK-MED ONE Stop: 03/20/19 12:59 Fentanyl (Sublimaze) Confirm Administered Dose 100 mcg .ROUTE .STK-MED ONE Stop: 03/20/19 12:26 Fentanyl (Sublimaze) Confirm Administered Dose 100 mcg .ROUTE .STK-MED ONE Stop: 03/20/19 12:58 Fentanyl (Sublimaze) Confirm Administered Dose 100 mcg .ROUTE .STK-MED ONE Stop: 03/20/19 13:01 Glycopyrrolate (Robinul) Confirm Administered Dose 0.2 mg .ROUTE .STK-MED ONE Stop: 03/20/19 12:28 Hydromorphone HCl (Dilaudid) 1 mg IVPUSH ONETIME ONE Stop: 03/20/19 13:45 Last Admin: 03/20/19 14:46 Dose: Not Given Hydromorphone HCl (Dilaudid) 1 mg IVPUSH ONETIME ONE Stop: 03/20/19 18:01 Last Admin: 03/21/19 09:32 Dose: Not Given Sodium Chloride (Normal Saline) 1,000 mls @ 999 mls/hr IV STAT ONE Stop: 03/20/19 02:05 Last Admin: 03/20/19 01:35 Dose: 999 mls/hr Vancomycin HCl 1 gm/ Sodium (Chloride) 250 mls @ 166 mls/hr IV ONETIME ONE Stop: 03/20/19 02:35 Last Admin: 03/20/19 01:35 Dose: 166 mls/hr Sodium Chloride (Normal Saline) 1,000 mls @ 125 mls/hr IV ASDIRECTED [facility] Last Admin: 03/20/19 14:28 Dose: 125 mls/hr Vancomycin HCl 1 gm/ Sodium (Chloride) 250 mls @ 166 mls/hr IV Q12H [facility] Sodium Chloride (Normal Saline) Confirm Administered Dose 20 mls @ as directed .ROUTE .STK-MED ONE Stop: 03/20/19 12:59 Acetaminophen (Ofirmev) Confirm Administered Dose 100 mls @ as directed .ROUTE .STK-MED ONE Stop: 03/20/19 13:29 Last Admin: 03/20/19 14:27 Dose: Not Given Acetaminophen 1,000 mg/ Premix 100 mls @ 400 mls/hr IV NOW ONE Stop: 03/20/19 13:46 Last Admin: 03/20/19 13:31 Dose: 400 mls/hr Cefazolin Sodium/Dextrose 2 gm (/ Premix) 50 mls @ 100 mls/hr IV Q8H [facility] Stop: 03/20/19 22:14 Last Admin: 03/20/19 20:50 Dose: 100 mls/hr Iopamidol (Isovue-370 (76%)) 100 ml IVPUSH ONETIME ONE Stop: 03/20/19 02:22 Last Admin: 03/20/19 02:33 Dose: 100 ml Ketorolac Tromethamine (Toradol) 30 mg IVPUSH ONETIME ONE Stop: 03/20/19 01:06 Last Admin: 03/20/19 01:35 Dose: 30 mg Ketorolac Tromethamine (Toradol) Confirm Administered Dose 30 mg .ROUTE .STK- MED ONE Stop: 03/20/19 12:28 Lidocaine (Xylocaine-Mpf 2%) Confirm Administered Dose 5 ml .ROUTE .STK-MED ONE Stop: 03/20/19 12:28 Midazolam HCl (Versed 1 Mg/Ml) Confirm Administered Dose 2 mg .ROUTE .STK-MED ONE Stop: 03/20/19 12:26 Ondansetron HCl (Zofran) Confirm Administered Dose 4 mg .ROUTE .STK-MED ONE Stop: 03/20/19 12:28 Oxycodone HCl (Oxycodone) 5 - 10 mg PO Q4H PRN PRN Reason: Pain Propofol (Diprivan 20 Ml) Confirm Administered Dose 200 mg .ROUTE .STK-MED ONE Stop: 03/20/19 12:26 Vancomycin HCl (Pharmacy To Dose - Vancomycin) 1 dose .XX ASDIRECTED [facility] <Daina Zhao - Last Filed: 03/25/19 14:29> Discharge Summary - Hospital Course HPI Initial Comments: I have seen and evaluated the patient and agree with the residents note unless specified in my note - Referral to Home Health Primary Care Physician: PCP None - Patient Summary/Data Consults: Consultations 03/20/19 02:06 Consult to Physician [CONS] Stat - Patient Data Vitals - Most Recent: Last Vital Signs Temp 36.4 C 03/22/19 07:41 Pulse 82 03/22/19 07:41 Resp 14 03/22/19 07:41 BP 130/71 03/22/19 07:41 Pulse Ox 96 03/22/19 07:41 ZULY Results - Last 24 hrs: Microbiology 03/20/19 13:08 Wound Culture - Final Arm, Right - Lower Escherichia Coli Skin Wendy 03/20/19 01:20 Aerobic Blood Culture - Final Blood - Venous - Lab Draw NO GROWTH AFTER 5 DAYS Anaerobic Blood Culture - Final NO GROWTH AFTER 5 DAYS 03/20/19 01:30 Aerobic Blood Culture - Final Blood - Venous NO GROWTH AFTER 5 DAYS Anaerobic Blood Culture - Final NO GROWTH AFTER 5 DAYS 03/20/19 13:08 Anaerobic Culture - Preliminary Other - Arm, Right Med Orders - Current: Current Medications Discontinued Medications Acetaminophen (Tylenol Extra Strength) 1,000 mg PO Q6H PRN PRN Reason: Pain Al Hydroxide/Mg Hydroxide (Mag-Al Plus) 30 ml PO Q4H PRN PRN Reason: Indigestion Cefazolin Sodium (Ancef) Confirm Administered Dose 2 gm .ROUTE .STK-MED ONE Stop: 03/20/19 12:59 Fentanyl (Sublimaze) Confirm Administered Dose 100 mcg .ROUTE .STK-MED ONE Stop: 03/20/19 12:26 Fentanyl (Sublimaze) Confirm Administered Dose 100 mcg .ROUTE .STK-MED ONE Stop: 03/20/19 12:58 Fentanyl (Sublimaze) Confirm Administered Dose 100 mcg .ROUTE .STK-MED ONE Stop: 03/20/19 13:01 Fentanyl (Sublimaze) 50 - 100 mcg IVPUSH Q5M PRN PRN Reason: Pain (severe 7-10) Last Admin: 03/20/19 13:52 Dose: 50 mcg Glycopyrrolate (Robinul) Confirm Administered Dose 0.2 mg .ROUTE .STK-MED ONE Stop: 03/20/19 12:28 Hydromorphone HCl (Dilaudid) 1 mg IVPUSH ONETIME ONE Stop: 03/20/19 13:45 Last Admin: 03/20/19 14:46 Dose: Not Given Hydromorphone HCl (Dilaudid) 1 mg IVPUSH ONETIME ONE Stop: 03/20/19 18:01 Last Admin: 03/21/19 09:32 Dose: Not Given Sodium Chloride (Normal Saline) 1,000 mls @ 999 mls/hr IV STAT ONE Stop: 03/20/19 02:05 Last Admin: 03/20/19 01:35 Dose: 999 mls/hr Vancomycin HCl 1 gm/ Sodium (Chloride) 250 mls @ 166 mls/hr IV ONETIME ONE Stop: 03/20/19 02:35 Last Admin: 03/20/19 01:35 Dose: 166 mls/hr Sodium Chloride (Normal Saline) 1,000 mls @ 125 mls/hr IV ASDIRECTED [facility] Last Admin: 03/20/19 14:28 Dose: 125 mls/hr Vancomycin HCl 1 gm/ Sodium (Chloride) 250 mls @ 166 mls/hr IV Q12H RACHEL Vancomycin HCl 1 gm/ Sodium (Chloride) 250 mls @ 166 mls/hr IV Q8H [facility] Last Admin: 03/22/19 08:13 Dose: 166 mls/hr Sodium Chloride (Normal Saline) Confirm Administered Dose 20 mls @ as directed .ROUTE .STK-MED ONE Stop: 03/20/19 12:59 Acetaminophen (Ofirmev) Confirm Administered Dose 100 mls @ as directed .ROUTE .STK-MED ONE Stop: 03/20/19 13:29 Last Admin: 03/20/19 14:27 Dose: Not Given Acetaminophen 1,000 mg/ Premix 100 mls @ 400 mls/hr IV NOW ONE Stop: 03/20/19 13:46 Last Admin: 03/20/19 13:31 Dose: 400 mls/hr Cefazolin Sodium/Dextrose 2 gm (/ Premix) 50 mls @ 100 mls/hr IV Q8H RACHEL Stop: 03/20/19 22:14 Last Admin: 03/20/19 20:50 Dose: 100 mls/hr Iopamidol (Isovue-370 (76%)) 100 ml IVPUSH ONETIME ONE Stop: 03/20/19 02:22 Last Admin: 03/20/19 02:33 Dose: 100 ml Ketorolac Tromethamine (Toradol) 30 mg IVPUSH ONETIME ONE Stop: 03/20/19 01:06 Last Admin: 03/20/19 01:35 Dose: 30 mg Ketorolac Tromethamine (Toradol) Confirm Administered Dose 30 mg .ROUTE .STK- MED ONE Stop: 03/20/19 12:28 Lidocaine (Xylocaine-Mpf 2%) Confirm Administered Dose 5 ml .ROUTE .STK-MED ONE Stop: 03/20/19 12:28 Midazolam HCl (Versed 1 Mg/Ml) Confirm Administered Dose 2 mg .ROUTE .STK-MED ONE Stop: 03/20/19 12:26 Ondansetron HCl (Zofran) Confirm Administered Dose 4 mg .ROUTE .STK-MED ONE Stop: 03/20/19 12:28 Oxycodone HCl (Oxycodone) 5 - 10 mg PO Q4H PRN PRN Reason: Pain Propofol (Diprivan 20 Ml) Confirm Administered Dose 200 mg .ROUTE .STK-MED ONE Stop: 03/20/19 12:26 Sodium Chloride (Saline Flush) 10 ml FLUSH ASDIRECTED PRN PRN Reason: Keep Vein Open Sodium Chloride (Saline Flush) 2.5 ml FLUSH ASDIRECTED PRN PRN Reason: Keep Vein Open Sodium Chloride (Saline Flush) 10 ml FLUSH ASDIRECTED PRN PRN Reason: Keep Vein Open Sodium Chloride (Saline Flush) 2.5 ml FLUSH ASDIRECTED PRN PRN Reason: Keep Vein Open Tramadol HCl (Ultram) 25 mg PO Q6H PRN PRN Reason: Pain Last Admin: 03/22/19 07:58 Dose: 25 mg Vancomycin HCl (Pharmacy To Dose - Vancomycin) 1 dose .XX ASDIRECTED RACHEL
== END 2019-03-22 13:30 | disposition left against medical advice (07) ==
LOC: MW.ED 00:38 → MW.MS 03:45
PROVIDERS: ADMIT Student in an Organized Health Care Education/Training Program; ATTEND Student in an Organized Health Care Education/Training Program
DX: L02.413 Cutaneous abscess of right upper limb (principal); F19.11 Other psychoactive substance abuse, in remission; F17.210 Nicotine dependence, cigarettes, uncomplicated
CPT/HCPCS: 10060; 36415; 73080; 73206; 80053; 80202; 80305; 83605; 85025; 85610; 87040; 87070; 87186; 87205; 96361; 96365; 96366; 96367; 96375; 99285; A9270; G0378; J0131; J0690; J1885; J2001; J2250; J2405; J2704; J3010; J3370; J3490; J7030; J7050; Q9967; 00400; 87077; 99284

== ENCOUNTER 2019-05-13 11:47 | Observation (INO) | payer OTHER ==
[2019-05-13] MEDS ORDERED: Sodium Chloride 0.9% 1,000 ML IV ONE ×2 (12:27→13:40)
--- NOTE | 2019-05-13 13:11 | EDM.PDOC ---
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 He is very aggregated at this time. Due to his AMS I cannot obtain any history from him. Onset: Today - Related Data Allergies Allergy/AdvReac Type Severity Reaction Status Date / Time No Known Allergies Allergy Verified 05/13/19 11:57 Home Meds: Home Meds . [No Known Home Meds] 05/13/19 [History] Past Medical History - Past Health History Medical/Surgical History: Denies Medical/Surgical History HEENT History: Reports: None Cardiovascular History: Reports: None Respiratory History: Reports: None Gastrointestinal History: Reports: None Genitourinary History: Reports: None Musculoskeletal History: Reports: None Neurological History: Reports: None Psychiatric History: Reports: Addiction Endocrine/Metabolic History: Reports: None Hematologic History: Reports: None Immunologic History: Reports: None Oncologic (Cancer) History: Reports: None Dermatologic History: Reports: None - Infectious Disease History Infectious Disease History: Reports: None - Past Surgical History Other HEENT Surgeries/Procedures: unable to verify Other Cardiovascular Surgeries/Procedures: unable to verify Other Respiratory Surgeries/Procedures: unable to verify Other GI Surgeries/Procedures: unable to verify Other Male Surgeries/Procedures: unable to verify Other Endocrine Surgeries/Procedures: unable to verify Other Neurological Surgeries/Procedures: unable to verify Other Musculoskeletal Surgeries/Procedures:: unable to verify Social & Family History - Family History Family Medical History: Noncontributory Other Dermatologic Family History: unable to verify - Tobacco Use Smoking Status *Q: Current Every Day Smoker Years of Tobacco use: 10 Packs/Tins Daily: 1 - Caffeine Use Caffeine Use: Reports: Coffee - Recreational Drug Use Recreational Drug Use: Yes Recreational Drug Type: Reports: Cocaine, Heroin, Marijuana/Hashish, Methamphetamine Recreational Drug Use Frequency: Weekly ED ROS GENERAL - Review of Systems Review Of Systems: See Below Constitutional: Reports: No Symptoms HEENT: Reports: No Symptoms Respiratory: Reports: No Symptoms Cardiovascular: Reports: Other (unknown) GI/Abdominal: Reports: No Symptoms : Reports: No Symptoms Neurological: Reports: Other (AMS on drugs) - Physical Exam Exam: See Below Exam Limited By: Altered Mental Status General Appearance: WD/WN, No Apparent Distress, Anxious, Other (hyperactive) Eye Exam: Bilateral Eye: EOMI, Normal Inspection, PERRL (3mm and reactive) Ears: Normal External Exam, Normal Canal, Hearing Grossly Normal, Normal TMs Nose: Normal Inspection, Normal Mucosa, No Blood Throat/Mouth: Normal Inspection, Normal Lips, Normal Teeth, Normal Gums, Normal Oropharynx, Normal Voice, No Airway Compromise Head Exam: Atraumatic, Normocephalic Neck: Normal Inspection, Supple, Non-Tender, Full Range of Motion Respiratory/Chest: No Respiratory Distress, Lungs Clear, Normal Breath Sounds, Chest Non-Tender Cardiovascular: Normal Peripheral Pulses, No Edema, No JVD, No Murmur, Tachycardia (rate of 120). No: Systolic Murmur, Gallop/S3 GI/Abdominal: Normal Bowel Sounds, Soft, Non-Tender, No Organomegaly, No Distention, No Abnormal Bruit, No Mass (Male) Exam: Deferred Rectal (Males) Exam: Deferred Neuro Exam (Abbreviated): Normal Reflexes, No Motor/Sensory Deficits, Other ( very aggitated. AMS secondary to drug abuse) DTR: 2+: Bicep (R), 3+: Bicep (L), Patella (R), Patella (L) Back Exam: Normal Inspection, Full Range of Motion, NT Extremities: Normal Inspection, Normal Range of Motion, Non-Tender, Normal Capillary Refill Psychiatric: Other (unable to evaluate due to AMS) Skin Exam: Warm, Dry, Intact, No Rash. No: Diaphoretic, Ecchymosis, Erythema, Increased Warmth, Petechiae, Rash Course - Vital Signs Text/Narrative:: I discussed this case with Dr. Zhao at 3:04PM. The patient will be admitted to OBS Tele. Diagnosis of drug withdrawal. I have informed the chief scientific officer and he is aware. Last Recorded V/S: Last Vital Signs Temp 97.8 F 05/13/19 11:58 Pulse 104 H 05/13/19 14:05 Resp 15 05/13/19 14:05 BP 126/59 L 05/13/19 14:05 Pulse Ox 97 05/13/19 14:05 - Orders/Labs/Meds Orders: Active Orders 24 hr Category Date Time Status EKG 12 Lead [EKG Documentation Completion] [RC] STAT Care 05/13/19 12:44 Active Chest 1V Frontal [CR] Stat Exams 05/13/19 14:49 Ordered DRUG SCREEN, URINE [URCHEM] Stat Lab 05/13/19 15:00 Received UA W/ZULY RFLX IF INDICATED [URIN] Stat Lab 05/13/19 15:00 Received Labs: Laboratory Tests 05/13/19 05/13/19 05/13/19 Range/Units 12:20 12:20 13:05 WBC 16.48 H (4.0-11.0) K/uL RBC 5.11 (4.50-5.90) M/uL Hgb 16.0 (13.0-17.0) g/dL Hct 44.0 (38.0-50.0) % MCV 86.1 (80.0-98.0) fL MCH 31.3 (27.0-32.0) pg MCHC 36.4 (31.0-37.0) g/dL RDW Std Deviation 41.2 (28.0-62.0) fl RDW Coeff of Patricia 13 (11.0-15.0) % Plt Count 395 (150-400) K/uL MPV 10.30 (7.40-12.00) fL Neut % (Auto) 72.4 (48.0-80.0) % Lymph % (Auto) 15.9 L (16.0-40.0) % [place] % (Auto) 10.0 (0.0-15.0) % Eos % (Auto) 1.3 (0.0-7.0) % Baso % (Auto) 0.4 (0.0-1.5) % Neut # (Auto) 11.9 H (1.4-5.7) K/uL Lymph # (Auto) 2.6 H (0.6-2.4) K/uL [place] # (Auto) 1.6 H (0.0-0.8) K/uL Eos # (Auto) 0.2 (0.0-0.7) K/uL Baso # (Auto) 0.1 (0.0-0.1) K/uL Nucleated RBC % 0.0 /100WBC Nucleated RBCs # 0 K/uL Sodium 138 (136-148) mmol/L Potassium 3.9 (3.5-5.1) mmol/L Chloride 101 (98-107) mmol/L Carbon Dioxide 23.2 (21.0-32.0) mmol/L BUN 36 H (7.0-18.0) mg/dL Creatinine 1.4 H (0.8-1.3) mg/dL Est Cr Clr Drug Dosing 70.16 mL/min Estimated GFR (MDRD) > 60.0 ml/min Glucose 110 H (74-106) mg/dL Calcium 8.7 (8.5-10.1) mg/dL Magnesium 2.0 (1.8-2.4) mg/dL Total Bilirubin 1.2 H (0.2-1.0) mg/dL AST 56 H (15-37) IU/L ALT 37 (14-63) IU/L Alkaline Phosphatase 92 (46-116) U/L Total Protein 8.1 (6.4-8.2) g/dL Albumin 4.5 (3.4-5.0) g/dL Globulin 3.6 (2.6-4.0) g/dL Albumin/Globulin Ratio 1.2 (0.9-1.6) Salicylates 2.7 (0-20) mg/dL Acetaminophen <2.0 ug/mL Meds: Medications Discontinued Medications Generic Name Dose Route Start Last Admin Trade Name Freq PRN Reason Stop Dose Admin Sodium Chloride 1,000 mls @ 999 mls/hr 05/13/19 12:27 05/13/19 12:32 Normal Saline IV 05/13/19 13:27 999 mls/hr .Bolus ONE Administration Lorazepam 1 mg 05/13/19 13:24 Ativan IVPUSH 05/13/19 13:25 ONETIME ONE Lorazepam 2 mg 05/13/19 13:25 05/13/19 13:34 Ativan IVPUSH 05/13/19 13:26 2 mg ONETIME ONE Administration Departure - Departure Time of Disposition: 15:21 Disposition: Refer to Observation Condition: Fair Clinical Impression: Drug withdrawal syndrome Qualifiers: Substance type: opioid Qualified Code(s): F11.23 - Opioid dependence with withdrawal - Discharge Information *PRESCRIPTION DRUG MONITORING PROGRAM REVIEWED*: Yes *COPY OF PRESCRIPTION DRUG MONITORING REPORT IN PATIENT SHELLI: Yes Sepsis Event Note - Evaluation Sepsis Screening Result: No Definite Risk - Focused Exam Vital Signs: Vital Signs Temp Pulse Resp BP Pulse Ox 05/13/19 14:05 104 H 15 126/59 L 97 05/13/19 13:50 108 H 18 130/66 97 05/13/19 13:25 119 H 18 105/48 L 96 05/13/19 11:58 97.8 F 130 H 20 145/82 H 97 Date Exam was Performed: 05/13/19 Time Exam was Performed: 15:11 - My Orders Last 24 Hours: My Active Orders 05/13/19 12:44 EKG 12 Lead [EKG Documentation Completion] [RC] STAT 05/13/19 14:49 Chest 1V Frontal [CR] Stat 05/13/19 15:00 DRUG SCREEN, URINE [URCHEM] Stat UA W/ZULY RFLX IF INDICATED [URIN] Stat - Assessment/Plan Last 24 Hours: My Active Orders 05/13/19 12:44 EKG 12 Lead [EKG Documentation Completion] [RC] STAT 05/13/19 14:49 Chest 1V Frontal [CR] Stat 05/13/19 15:00 DRUG SCREEN, URINE [URCHEM] Stat UA W/ZULY RFLX IF INDICATED [URIN] Stat
[2019-05-13] MEDS ORDERED: LORazepam 2 MG/ML SDV IVPUSH ONE ×2 (13:24→13:25)
[2019-05-13 13:31] LABS: BLOOD UREA NITROGEN,BUN 36 mg/dL (7.0-18.0); CARBON DIOXIDE,CO2 23.2 mmol/L (21.0-32.0); CHLORIDE,CL 101 mmol/L (98-107); GLUCOSE RANDOM 110 mg/dL (74-106); POTASSIUM,K 3.9 mmol/L (3.5-5.1); SODIUM,NA 138 mmol/L (136-148)
[2019-05-13 13:41] LABS: ACETAMINOPHEN <2.0 ug/mL
--- NOTE | 2019-05-13 15:40 | CR ---
Chest: Supine portable view of the chest was obtained. Comparison: No prior chest imaging is available. Heart size and mediastinum are normal. Lungs are clear with no acute parenchymal change. Visualized upper abdominal bowel gas appears normal. Bony structures appear within normal limits. Impression: 1. Nothing acute is appreciated on supine chest x-ray. Diagnostic code #1 This report was dictated in [place] Standard Time
--- NOTE | 2019-05-13 16:04 | PCM.HP.2 ---
H&P History of Present Illness - General Date of Service: 05/13/19 Admit Problem/Dx: Admission Diagnosis/Problem Admission Diagnosis/Problem Drug withdrawal Source of Information: EMS Notes Reviewed, Provider, RN Notes Reviewed History Limitations: Reports: Combative/Threatening, Intoxication, Uncooperative - History of Present Illness Initial Comments - Free Text/Narative: Patient is a 23-year-old male with a significant past medical history of IV drug abuse including heroin/methamphetamine use, recent cellulitis was bought in to ER by police for combative behavior and AMS. Was found to have opoids and meth in his urine, Chest CXR was unremarkable, Labs showed leucocytosis, slight DASHA, deraaged LFts . Patient is being admitted for further management/ drug detox. Unable tp obtain more HPI due to patient being sedated for his combative behavior. - Related Data Allergies/Adverse Reactions: Allergies Allergy/AdvReac Type Severity Reaction Status Date / Time No Known Allergies Allergy Verified 05/13/19 11:57 Home Medications: Home Meds . [No Known Home Meds] 05/13/19 [History] Past Medical History - Past Health History Medical/Surgical History: Denies Medical/Surgical History HEENT History: Reports: None Cardiovascular History: Reports: None Respiratory History: Reports: None Gastrointestinal History: Reports: None Genitourinary History: Reports: None Musculoskeletal History: Reports: None Neurological History: Reports: None Psychiatric History: Reports: Addiction Endocrine/Metabolic History: Reports: None Hematologic History: Reports: None Immunologic History: Reports: None Oncologic (Cancer) History: Reports: None Dermatologic History: Reports: None - Infectious Disease History Infectious Disease History: Reports: None - Past Surgical History Other HEENT Surgeries/Procedures: unable to verify Other Cardiovascular Surgeries/Procedures: unable to verify Other Respiratory Surgeries/Procedures: unable to verify Other GI Surgeries/Procedures: unable to verify Other Male Surgeries/Procedures: unable to verify Other Endocrine Surgeries/Procedures: unable to verify Other Neurological Surgeries/Procedures: unable to verify Other Musculoskeletal Surgeries/Procedures:: unable to verify Social & Family History - Family History Family Medical History: Noncontributory Other Dermatologic Family History: unable to verify - Tobacco Use Smoking Status *Q: Current Every Day Smoker Years of Tobacco use: 10 Packs/Tins Daily: 1 - Caffeine Use Caffeine Use: Reports: Coffee - Recreational Drug Use Recreational Drug Use: Yes Recreational Drug Type: Reports: Cocaine, Heroin, Marijuana/Hashish, Methamphetamine Recreational Drug Use Frequency: Weekly H&P Review of Systems - Review of Systems: Review Of Systems: Unable To Obtain Reason Not Obtained: intoxicated Exam - Exam Exam: See Below (Limited exam due to intoxication) - Vital Signs Vital Signs: Last Vital Signs Temp 36.6 C 05/13/19 11:58 Pulse 104 H 05/13/19 14:05 Resp 15 05/13/19 14:05 BP 126/59 L 05/13/19 14:05 Pulse Ox 97 05/13/19 14:05 Weight: 65.771 kg - Exam General: Sedated. No: Alert, Oriented, Cooperative Neck: Supple Lungs: Clear to Auscultation, Normal Respiratory Effort Cardiovascular: Regular Rate, Normal S1, Normal S2, Tachycardia GI/Abdominal Exam: Normal Bowel Sounds, Soft, Non-Tender - Patient Data Lab Results Last 24 hrs: Laboratory Results - last 24 hr 05/13/19 05/13/19 05/13/19 Range/Units 12:20 12:20 13:05 WBC 16.48 H (4.0-11.0) K/uL RBC 5.11 (4.50-5.90) M/uL Hgb 16.0 (13.0-17.0) g/dL Hct 44.0 (38.0-50.0) % MCV 86.1 (80.0-98.0) fL MCH 31.3 (27.0-32.0) pg MCHC 36.4 (31.0-37.0) g/dL RDW Std Deviation 41.2 (28.0-62.0) fl RDW Coeff of Patricia 13 (11.0-15.0) % Plt Count 395 (150-400) K/uL MPV 10.30 (7.40-12.00) fL Neut % (Auto) 72.4 (48.0-80.0) % Lymph % (Auto) 15.9 L (16.0-40.0) % [place] % (Auto) 10.0 (0.0-15.0) % Eos % (Auto) 1.3 (0.0-7.0) % Baso % (Auto) 0.4 (0.0-1.5) % Neut # (Auto) 11.9 H (1.4-5.7) K/uL Lymph # (Auto) 2.6 H (0.6-2.4) K/uL [place] # (Auto) 1.6 H (0.0-0.8) K/uL Eos # (Auto) 0.2 (0.0-0.7) K/uL Baso # (Auto) 0.1 (0.0-0.1) K/uL Nucleated RBC % 0.0 /100WBC Nucleated RBCs # 0 K/uL Sodium 138 (136-148) mmol/L Potassium 3.9 (3.5-5.1) mmol/L Chloride 101 (98-107) mmol/L Carbon Dioxide 23.2 (21.0-32.0) mmol/L BUN 36 H (7.0-18.0) mg/dL Creatinine 1.4 H (0.8-1.3) mg/dL Est Cr Clr Drug Dosing 70.16 mL/min Estimated GFR (MDRD) > 60.0 ml/min Glucose 110 H (74-106) mg/dL Calcium 8.7 (8.5-10.1) mg/dL Magnesium 2.0 (1.8-2.4) mg/dL Total Bilirubin 1.2 H (0.2-1.0) mg/dL AST 56 H (15-37) IU/L ALT 37 (14-63) IU/L Alkaline Phosphatase 92 (46-116) U/L Total Protein 8.1 (6.4-8.2) g/dL Albumin 4.5 (3.4-5.0) g/dL Globulin 3.6 (2.6-4.0) g/dL Albumin/Globulin Ratio 1.2 (0.9-1.6) Urine Color Urine Appearance Urine pH (5.0-8.0) Ur Specific [place] (1.001-1.035) Urine Protein (NEGATIVE) mg/dL Urine Glucose (UA) (NEGATIVE) mg/dL Urine Ketones (NEGATIVE) mg/dL Urine Occult Blood (NEGATIVE) Urine Nitrite (NEGATIVE) Urine Bilirubin (NEGATIVE) Urine Ictotest Urine Urobilinogen (<2.0) EU/dL Ur Leukocyte Esterase (NEGATIVE) Salicylates 2.7 (0-20) mg/dL Urine Opiates Screen (NEGATIVE) Ur Oxycodone Screen (NEGATIVE) Urine Methadone Screen (NEGATIVE) Acetaminophen <2.0 ug/mL Ur Barbiturates Screen (NEGATIVE) Ur Phencyclidine Scrn (NEGATIVE) Ur Amphetamine Screen (NEGATIVE) U Methamphetamines Scrn (NEGATIVE) U Benzodiazepines Scrn (NEGATIVE) U Cocaine Metab Screen (NEGATIVE) U Marijuana (THC) Screen (NEGATIVE) 05/13/19 05/13/19 Range/Units 15:00 15:00 WBC (4.0-11.0) K/uL RBC (4.50-5.90) M/uL Hgb (13.0-17.0) g/dL Hct (38.0-50.0) % MCV (80.0-98.0) fL MCH (27.0-32.0) pg MCHC (31.0-37.0) g/dL RDW Std Deviation (28.0-62.0) fl RDW Coeff of [place] (11.0-15.0) % Plt Count (150-400) K/uL MPV (7.40-12.00) fL Neut % (Auto) (48.0-80.0) % Lymph % (Auto) (16.0-40.0) % [place] % (Auto) (0.0-15.0) % Eos % (Auto) (0.0-7.0) % Baso % (Auto) (0.0-1.5) % Neut # (Auto) (1.4-5.7) K/uL Lymph # (Auto) (0.6-2.4) K/uL [place] # (Auto) (0.0-0.8) K/uL Eos # (Auto) (0.0-0.7) K/uL Baso # (Auto) (0.0-0.1) K/uL Nucleated RBC % /100WBC Nucleated RBCs # K/uL Sodium (136-148) mmol/L Potassium (3.5-5.1) mmol/L Chloride (98-107) mmol/L Carbon Dioxide (21.0-32.0) mmol/L BUN (7.0-18.0) mg/dL Creatinine (0.8-1.3) mg/dL Est Cr Clr Drug Dosing mL/min Estimated GFR (MDRD) ml/min Glucose (74-106) mg/dL Calcium (8.5-10.1) mg/dL Magnesium (1.8-2.4) mg/dL Total Bilirubin (0.2-1.0) mg/dL AST (15-37) IU/L ALT (14-63) IU/L Alkaline Phosphatase (46-116) U/L Total Protein (6.4-8.2) g/dL Albumin (3.4-5.0) g/dL Globulin (2.6-4.0) g/dL Albumin/Globulin Ratio (0.9-1.6) Urine Color YELLOW Urine Appearance CLEAR Urine pH 5.5 (5.0-8.0) Ur Specific [place] >= 1.030 (1.001-1.035) Urine Protein NEGATIVE (NEGATIVE) mg/dL Urine Glucose (UA) NEGATIVE (NEGATIVE) mg/dL Urine Ketones TRACE H (NEGATIVE) mg/dL Urine Occult Blood NEGATIVE (NEGATIVE) Urine Nitrite NEGATIVE (NEGATIVE) Urine Bilirubin SMALL H (NEGATIVE) Urine Ictotest NEGATIVE Urine Urobilinogen 0.2 (<2.0) EU/dL Ur Leukocyte Esterase NEGATIVE (NEGATIVE) Salicylates (0-20) mg/dL Urine Opiates Screen POSITIVE (NEGATIVE) Ur Oxycodone Screen NEGATIVE (NEGATIVE) Urine Methadone Screen NEGATIVE (NEGATIVE) Acetaminophen ug/mL Ur Barbiturates Screen NEGATIVE (NEGATIVE) Ur Phencyclidine Scrn NEGATIVE (NEGATIVE) Ur Amphetamine Screen POSITIVE (NEGATIVE) U Methamphetamines Scrn POSITIVE (NEGATIVE) U Benzodiazepines Scrn NEGATIVE (NEGATIVE) U Cocaine Metab Screen NEGATIVE (NEGATIVE) U Marijuana (THC) Screen POSITIVE (NEGATIVE) Result Diagrams: 05/13/19 12:20 05/13/19 13:05 Sepsis Event Note - Evaluation Sepsis Screening Result: No Definite Risk - Focused Exam Vital Signs: Vital Signs Temp Pulse Resp BP Pulse Ox 05/13/19 14:05 104 H 15 126/59 L 97 05/13/19 13:50 108 H 18 130/66 97 05/13/19 13:25 119 H 18 105/48 L 96 05/13/19 11:58 36.6 C 130 H 20 145/82 H 97 Date Exam was Performed: 05/13/19 Time Exam was Performed: 21:16 - Problem List (1) Drug intoxication SNOMED Code(s): 6213517 ICD Code: F19.929 - OTH PSYCHOACTIVE SUBSTANCE USE, UNSP WITH INTOXICATION, UNSP Status: Acute Current Visit: Yes (2) Drug dependence SNOMED Code(s): 681763131 ICD Code: F19.20 - OTHER PSYCHOACTIVE SUBSTANCE DEPENDENCE, UNCOMPLICATED Status: Acute Current Visit: No (3) Heroin abuse SNOMED Code(s): 0693803 ICD Code: F11.10 - OPIOID ABUSE, UNCOMPLICATED Status: Acute Current Visit: No (4) Methamphetamine abuse SNOMED Code(s): 878763921 ICD Code: F15.10 - OTHER STIMULANT ABUSE, UNCOMPLICATED Status: Acute Current Visit: No (5) DASHA (acute kidney injury) SNOMED Code(s): 84125137, 00481939 ICD Code: N17.9 - ACUTE KIDNEY FAILURE, UNSPECIFIED Status: Acute Current Visit: Yes Problem List Initiated/Reviewed/Updated: Yes Orders Last 24hrs: Active Orders 24 hr Category Date Time Status Admission Status [Patient Status] [ADT] Stat ADT 05/13/19 15:24 Active EKG 12 Lead [EKG Documentation Completion] [RC] STAT Care 05/13/19 12:44 Active Assessment/Plan Comment:: A/P: 23 y/o White male admitted for drug intoxication Will admit to telemetry Cont IVF hydration for DASHA Ativan PRN agitation Although patient has leucocytosis and tachycardia, i dont suspect sepsis, WBC count likely reactive, tachy due to his meth use, no fevers as of now Trend WBC count Monitor and replete electrolytes 1 on 1 sitter for patient safety
[2019-05-13] MEDS ORDERED: Ondansetron 4 MG/2 ML SDV IVPUSH PRN (16:05)
[2019-05-13] MEDS ORDERED: Albuterol/Ipratropium 3.0-0.5 MG/3 ML Neb Soln NEB PRN (16:05)
[2019-05-13] MEDS: LORazepam 2 MG/ML SDV IVPUSH PRN ×2 (17:35→19:11)
[2019-05-13] MEDS: Lactated Ringers 1,000 ML IV SCH (17:39)
[2019-05-14] MEDS: Lactated Ringers 1,000 ML IV SCH ×2 (02:18→10:16)
[2019-05-14 04:39] LABS: BLOOD UREA NITROGEN,BUN 24 mg/dL (7.0-18.0); CHLORIDE,CL 104 mmol/L (98-107); GLUCOSE RANDOM 74 mg/dL (74-106); POTASSIUM,K 3.8 mmol/L (3.5-5.1); SODIUM,NA 138 mmol/L (136-148)
[2019-05-14] MEDS ORDERED: Lactated Ringers 1,000 ML IV ONE (11:06)
--- NOTE | 2019-05-14 11:18 | PCM.DCSUM1 ---
Discharge Summary - Hospital Course HPI Initial Comments: Patient is a 23-year-old male with a significant past medical history of IV drug abuse including heroin/methamphetamine use, recent cellulitis was bought in to ER by police for combative behavior and AMS. Was found to have opoids and meth in his urine, Chest CXR was unremarkable, Labs showed leucocytosis, slight DASHA, deranged LFts . Patient is being admitted for further management/ drug detox. Patient was started on IVF fluids, received several bolus overnight. In the AM DASHA had resolved, LFTs still mildly abnormal likely due to drug use. Patient's mentation was back to his baseline, he was hemodynamically stable to be discharged, he was counselled against drug use, states he will see a counselled once discharged. - Discharge Data Discharge Date: 05/14/19 Discharge Disposition: Home, Self-Care 01 Condition: Stable - Referral to Home Health Primary Care Physician: PCP Unknown - Discharge Diagnosis/Problem(s) (1) Drug intoxication SNOMED Code(s): 4578412 ICD Code: F19.929 - OTH PSYCHOACTIVE SUBSTANCE USE, UNSP WITH INTOXICATION, UNSP Status: Acute Current Visit: Yes (2) Drug dependence SNOMED Code(s): 260756863 ICD Code: F19.20 - OTHER PSYCHOACTIVE SUBSTANCE DEPENDENCE, UNCOMPLICATED Status: Acute Current Visit: No (3) Heroin abuse SNOMED Code(s): 3405866 ICD Code: F11.10 - OPIOID ABUSE, UNCOMPLICATED Status: Acute Current Visit: No (4) Methamphetamine abuse SNOMED Code(s): 033032688 ICD Code: F15.10 - OTHER STIMULANT ABUSE, UNCOMPLICATED Status: Acute Current Visit: No (5) DASHA (acute kidney injury) SNOMED Code(s): 39989565, 10553822 ICD Code: N17.9 - ACUTE KIDNEY FAILURE, UNSPECIFIED Status: Acute Current Visit: Yes - Patient Instructions Diet: Regular Diet as Tolerated Activity: As Tolerated Showering/Bathing: May Shower Notify Provider of: Fever, Increased Pain, Swelling and Redness, Drainage, Nausea and/or Vomiting - Discharge Plan *PRESCRIPTION DRUG MONITORING PROGRAM REVIEWED*: Yes *COPY OF PRESCRIPTION DRUG MONITORING REPORT IN PATIENT SHELLI: Yes Home Medications: Home Meds . [No Known Home Meds] 05/13/19 [History] Patient Handouts: Stimulant Use Disorder-Amphetamines, Substance Use Disorder Referrals: [facility] [Ordering Only Provider] - (On Wednesday you should call the clinic to make a hospital follow-up appointment. This was not done for you, due to it being the weekend.) - Discharge Summary/Plan Comment DC Time >30 min.: No - Patient Data Vitals - Most Recent: Last Vital Signs Temp 36.4 C 05/14/19 07:57 Pulse 69 05/14/19 07:57 Resp 16 05/14/19 07:57 BP 98/56 L 05/14/19 07:57 Pulse Ox 99 05/14/19 07:57 Weight - Most Recent: 65.771 kg I&O - Last 24 hours: Intake & Output 05/13/19 05/14/19 05/14/19 22:59 06:59 14:59 Intake Total 1730 Output Total 0 Balance 1730 Lab Results - Last 24 hrs: Laboratory Results - last 24 hr 05/13/19 05/13/19 05/13/19 Range/Units 12:20 12:20 13:05 WBC 16.48 H (4.0-11.0) K/uL RBC 5.11 (4.50-5.90) M/uL Hgb 16.0 (13.0-17.0) g/dL Hct 44.0 (38.0-50.0) % MCV 86.1 (80.0-98.0) fL MCH 31.3 (27.0-32.0) pg MCHC 36.4 (31.0-37.0) g/dL RDW Std Deviation 41.2 (28.0-62.0) fl RDW Coeff of Patricia 13 (11.0-15.0) % Plt Count 395 (150-400) K/uL MPV 10.30 (7.40-12.00) fL Neut % (Auto) 72.4 (48.0-80.0) % Lymph % (Auto) 15.9 L (16.0-40.0) % [place] % (Auto) 10.0 (0.0-15.0) % Eos % (Auto) 1.3 (0.0-7.0) % Baso % (Auto) 0.4 (0.0-1.5) % Neut # (Auto) 11.9 H (1.4-5.7) K/uL Lymph # (Auto) 2.6 H (0.6-2.4) K/uL [place] # (Auto) 1.6 H (0.0-0.8) K/uL Eos # (Auto) 0.2 (0.0-0.7) K/uL Baso # (Auto) 0.1 (0.0-0.1) K/uL Nucleated RBC % 0.0 /100WBC Nucleated RBCs # 0 K/uL Sodium 138 (136-148) mmol/L Potassium 3.9 (3.5-5.1) mmol/L Chloride 101 (98-107) mmol/L Carbon Dioxide 23.2 (21.0-32.0) mmol/L BUN 36 H (7.0-18.0) mg/dL Creatinine 1.4 H (0.8-1.3) mg/dL Est Cr Clr Drug Dosing 70.16 mL/min Estimated GFR (MDRD) > 60.0 ml/min Glucose 110 H (74-106) mg/dL Calcium 8.7 (8.5-10.1) mg/dL Phosphorus (2.6-4.7) mg/dL Magnesium 2.0 (1.8-2.4) mg/dL Total Bilirubin 1.2 H (0.2-1.0) mg/dL AST 56 H (15-37) IU/L ALT 37 (14-63) IU/L Alkaline Phosphatase 92 (46-116) U/L Troponin I (0.000-0.056) ng/mL Total Protein 8.1 (6.4-8.2) g/dL Albumin 4.5 (3.4-5.0) g/dL Globulin 3.6 (2.6-4.0) g/dL Albumin/Globulin Ratio 1.2 (0.9-1.6) Urine Color Urine Appearance Urine pH (5.0-8.0) Ur Specific [place] (1.001-1.035) Urine Protein (NEGATIVE) mg/dL Urine Glucose (UA) (NEGATIVE) mg/dL Urine Ketones (NEGATIVE) mg/dL Urine Occult Blood (NEGATIVE) Urine Nitrite (NEGATIVE) Urine Bilirubin (NEGATIVE) Urine Ictotest Urine Urobilinogen (<2.0) EU/dL Ur Leukocyte Esterase (NEGATIVE) Salicylates 2.7 (0-20) mg/dL Urine Opiates Screen (NEGATIVE) Ur Oxycodone Screen (NEGATIVE) Urine Methadone Screen (NEGATIVE) Acetaminophen <2.0 ug/mL Ur Barbiturates Screen (NEGATIVE) Ur Phencyclidine Scrn (NEGATIVE) Ur Amphetamine Screen (NEGATIVE) U Methamphetamines Scrn (NEGATIVE) U Benzodiazepines Scrn (NEGATIVE) U Cocaine Metab Screen (NEGATIVE) U Marijuana (THC) Screen (NEGATIVE) Ethyl Alcohol mg/dL 05/13/19 05/13/19 05/13/19 Range/Units 13:06 15:00 15:00 WBC (4.0-11.0) K/uL RBC (4.50-5.90) M/uL Hgb (13.0-17.0) g/dL Hct (38.0-50.0) % MCV (80.0-98.0) fL MCH (27.0-32.0) pg MCHC (31.0-37.0) g/dL RDW Std Deviation (28.0-62.0) fl RDW Coeff of Patricia (11.0-15.0) % Plt Count (150-400) K/uL MPV (7.40-12.00) fL Neut % (Auto) (48.0-80.0) % Lymph % (Auto) (16.0-40.0) % [place] % (Auto) (0.0-15.0) % Eos % (Auto) (0.0-7.0) % Baso % (Auto) (0.0-1.5) % Neut # (Auto) (1.4-5.7) K/uL Lymph # (Auto) (0.6-2.4) K/uL [place] # (Auto) (0.0-0.8) K/uL Eos # (Auto) (0.0-0.7) K/uL Baso # (Auto) (0.0-0.1) K/uL Nucleated RBC % /100WBC Nucleated RBCs # K/uL Sodium (136-148) mmol/L Potassium (3.5-5.1) mmol/L Chloride (98-107) mmol/L Carbon Dioxide (21.0-32.0) mmol/L BUN (7.0-18.0) mg/dL Creatinine (0.8-1.3) mg/dL Est Cr Clr Drug Dosing mL/min Estimated GFR (MDRD) ml/min Glucose (74-106) mg/dL Calcium (8.5-10.1) mg/dL Phosphorus (2.6-4.7) mg/dL Magnesium (1.8-2.4) mg/dL Total Bilirubin (0.2-1.0) mg/dL AST (15-37) IU/L ALT (14-63) IU/L Alkaline Phosphatase (46-116) U/L Troponin I (0.000-0.056) ng/mL Total Protein (6.4-8.2) g/dL Albumin (3.4-5.0) g/dL Globulin (2.6-4.0) g/dL Albumin/Globulin Ratio (0.9-1.6) Urine Color YELLOW Urine Appearance CLEAR Urine pH 5.5 (5.0-8.0) Ur Specific [place] >= 1.030 (1.001-1.035) Urine Protein NEGATIVE (NEGATIVE) mg/dL Urine Glucose (UA) NEGATIVE (NEGATIVE) mg/dL Urine Ketones TRACE H (NEGATIVE) mg/dL Urine Occult Blood NEGATIVE (NEGATIVE) Urine Nitrite NEGATIVE (NEGATIVE) Urine Bilirubin SMALL H (NEGATIVE) Urine Ictotest NEGATIVE Urine Urobilinogen 0.2 (<2.0) EU/dL Ur Leukocyte Esterase NEGATIVE (NEGATIVE) Salicylates (0-20) mg/dL Urine Opiates Screen POSITIVE (NEGATIVE) Ur Oxycodone Screen NEGATIVE (NEGATIVE) Urine Methadone Screen NEGATIVE (NEGATIVE) Acetaminophen ug/mL Ur Barbiturates Screen NEGATIVE (NEGATIVE) Ur Phencyclidine Scrn NEGATIVE (NEGATIVE) Ur Amphetamine Screen POSITIVE (NEGATIVE) U Methamphetamines Scrn POSITIVE (NEGATIVE) U Benzodiazepines Scrn NEGATIVE (NEGATIVE) U Cocaine Metab Screen NEGATIVE (NEGATIVE) U Marijuana (THC) Screen POSITIVE (NEGATIVE) Ethyl Alcohol <3 mg/dL 05/14/19 05/14/19 05/14/19 Range/Units 04:13 04:13 04:13 WBC 7.22 (4.0-11.0) K/uL RBC 4.59 (4.50-5.90) M/uL Hgb 14.1 (13.0-17.0) g/dL Hct 41.2 (38.0-50.0) % MCV 89.8 (80.0-98.0) fL MCH 30.7 (27.0-32.0) pg MCHC 34.2 (31.0-37.0) g/dL RDW Std Deviation 44.7 (28.0-62.0) fl RDW Coeff of Patricia 14 (11.0-15.0) % Plt Count 235 (150-400) K/uL MPV 9.40 (7.40-12.00) fL Neut % (Auto) 51.8 (48.0-80.0) % Lymph % (Auto) 29.5 (16.0-40.0) % [place] % (Auto) 13.7 (0.0-15.0) % Eos % (Auto) 4.3 (0.0-7.0) % Baso % (Auto) 0.7 (0.0-1.5) % Neut # (Auto) 3.7 (1.4-5.7) K/uL Lymph # (Auto) 2.1 (0.6-2.4) K/uL [place] # (Auto) 1.0 H (0.0-0.8) K/uL Eos # (Auto) 0.3 (0.0-0.7) K/uL Baso # (Auto) 0.1 (0.0-0.1) K/uL Nucleated RBC % 0.0 /100WBC Nucleated RBCs # 0 K/uL Sodium 138 (136-148) mmol/L Potassium 3.8 (3.5-5.1) mmol/L Chloride 104 (98-107) mmol/L Carbon Dioxide 26.0 (21.0-32.0) mmol/L BUN 24 H (7.0-18.0) mg/dL Creatinine 0.8 (0.8-1.3) mg/dL Est Cr Clr Drug Dosing 122.79 mL/min Estimated GFR (MDRD) > 60.0 ml/min Glucose 74 (74-106) mg/dL Calcium 8.2 L (8.5-10.1) mg/dL Phosphorus 3.4 (2.6-4.7) mg/dL Magnesium 2.0 (1.8-2.4) mg/dL Total Bilirubin 1.4 H (0.2-1.0) mg/dL AST 50 H (15-37) IU/L ALT 37 (14-63) IU/L Alkaline Phosphatase 72 (46-116) U/L Troponin I < 0.050 (0.000-0.056) ng/mL Total Protein 6.5 (6.4-8.2) g/dL Albumin 3.4 (3.4-5.0) g/dL Globulin 3.1 (2.6-4.0) g/dL Albumin/Globulin Ratio 1.1 (0.9-1.6) Urine Color Urine Appearance Urine pH (5.0-8.0) Ur Specific [place] (1.001-1.035) Urine Protein (NEGATIVE) mg/dL Urine Glucose (UA) (NEGATIVE) mg/dL Urine Ketones (NEGATIVE) mg/dL Urine Occult Blood (NEGATIVE) Urine Nitrite (NEGATIVE) Urine Bilirubin (NEGATIVE) Urine Ictotest Urine Urobilinogen (<2.0) EU/dL Ur Leukocyte Esterase (NEGATIVE) Salicylates (0-20) mg/dL Urine Opiates Screen (NEGATIVE) Ur Oxycodone Screen (NEGATIVE) Urine Methadone Screen (NEGATIVE) Acetaminophen ug/mL Ur Barbiturates Screen (NEGATIVE) Ur Phencyclidine Scrn (NEGATIVE) Ur Amphetamine Screen (NEGATIVE) U Methamphetamines Scrn (NEGATIVE) U Benzodiazepines Scrn (NEGATIVE) U Cocaine Metab Screen (NEGATIVE) U Marijuana (THC) Screen (NEGATIVE) Ethyl Alcohol mg/dL Med Orders - Current: Current Medications Albuterol/Ipratropium (Duoneb 3.0-0.5 Mg/3 Ml) 3 ml NEB Q4HRRT PRN PRN Reason: Shortness Of Breath/wheezing Lactated Ringer's (Ringers, Lactated) 1,000 mls @ 125 mls/hr IV ASDIRECTED RACHEL Last Admin: 05/14/19 10:16 Dose: 125 mls/hr Lactated Ringer's (Ringers, Lactated) 1,000 mls @ 999 mls/hr IV .BOLUS ONE Stop: 05/14/19 12:06 Lorazepam (Ativan) 2 mg IVPUSH Q6H PRN PRN Reason: Agitation Last Admin: 05/13/19 19:11 Dose: 2 mg Ondansetron HCl (Zofran) 4 mg IVPUSH Q4H PRN PRN Reason: Nausea/Vomiting Discontinued Medications Sodium Chloride (Normal Saline) 1,000 mls @ 999 mls/hr IV .Bolus ONE Stop: 05/13/19 13:27 Last Admin: 05/13/19 12:32 Dose: 999 mls/hr Sodium Chloride (Normal Saline) 1,000 mls @ 999 mls/hr IV .Bolus ONE Stop: 05/13/19 14:40 Last Admin: 05/13/19 13:40 Dose: 999 mls/hr Lorazepam (Ativan) 1 mg IVPUSH ONETIME ONE Stop: 05/13/19 13:25 Lorazepam (Ativan) 2 mg IVPUSH ONETIME ONE Stop: 05/13/19 13:26 Last Admin: 05/13/19 13:34 Dose: 2 mg
== END 2019-05-14 13:00 | disposition home or self-care (01) ==
LOC: MW.ED 11:47 → MW.MS 15:24
PROVIDERS: ADMIT Student in an Organized Health Care Education/Training Program; ATTEND Student in an Organized Health Care Education/Training Program
DX: F11.229 Opioid dependence with intoxication, unspecified (principal); F15.229 Other stimulant dependence with intoxication, unspecified; N17.9 Acute kidney failure, unspecified; D72.829 Elevated white blood cell count, unspecified; R00.0 Tachycardia, unspecified; F17.210 Nicotine dependence, cigarettes, uncomplicated
CPT/HCPCS: 36415; 71045; 80053; 80305; 80307; 81003; 83735; 84100; 84484; 85025; 93005; J2060; J7030; J7120; 96361; 96374; 99284; 99285-25